=== PATIENT | female | born 1995 | race Caucasian/White ===

== ENCOUNTER 2020-09-22 17:15 | Outpatient (REF) | payer OTHER, SELFPAY | END 2020-09-22 17:16 | disposition home or self-care (01) | LOC: HO.LAB 17:15 | PROVIDERS: Visit Provider Internal Medicine | DX: Z20.828 Contact with and (suspected) exposure to other viral communicable diseases (principal) | CPT/HCPCS: C9803; U0003 ==

== ENCOUNTER 2020-11-02 17:15 | Outpatient (REF) | payer OTHER, SELFPAY | END 2020-11-02 17:16 | disposition home or self-care (01) | LOC: HO.LAB 17:15 | PROVIDERS: PCP Internal Medicine; Visit Provider Internal Medicine | DX: Z20.828 Contact with and (suspected) exposure to other viral communicable diseases (principal) | CPT/HCPCS: C9803; U0003 ==

== ENCOUNTER 2020-11-24 15:59 | Outpatient (REF) | payer OTHER, SELFPAY | END 2020-11-24 16:00 | disposition home or self-care (01) | LOC: HO.LAB 15:59 | PROVIDERS: Visit Provider Internal Medicine | DX: Z20.822 Contact with and (suspected) exposure to COVID-19 (principal) | CPT/HCPCS: 36415; C9803; U0003 ==

== ENCOUNTER 2021-05-07 22:43 | Emergency (ER) | payer OTHER, SELFPAY ==
--- NOTE | 2021-05-07 22:45 | PC.NURSE ---
awaiting for field mechanic/site lead for triage
[2021-05-07 22:57] VITALS: BP 144/76; PULSE 117; RESP 18; TEMP 36.4; O2SAT 100; BMI 23.0
--- NOTE | 2021-05-07 23:35 | ED.HA ---
HPI - Headache General Chief Complaint: Headache Stated Complaint: Headache/Dizziness Time Seen by Provider: 05/07/21 23:35 Source: patient Mode of arrival: ambulatory Limitations: language barrier History of Present Illness HPI Narrative: patient with? history of migraine headaches for last 1 year complaining of headache for last 1 week not getting better got worse for last 24 hours associated with slight nausea no light sensitivity no head injury family history of migraine present no fever no neck pain Related Data Previous Rx's Medication Instructions Recorded kujrqhbsxu-lkbuofnlmsdfm-edfp 1 cap PO Q6H PRN #20 cap 05/08/21 [Fioricet] Allergies Allergy/AdvReac Type Severity Reaction Status Date / Time No Known Allergies Allergy Unknown unknown Verified 05/07/21 22:57 [NO KNOWN ALLERGIES] Review of Systems Review of Systems: Yes all other systems are reviewed and are negative [facility] Past Medical History Medical History No pertinent past medical history Social History Social History Advance Directives: No Advance Directives Information Provided: No Patient : No Physical Exam Vital Signs: Vital Signs: Last Vital Signs Temp 97.5 F 05/07/21 22:57 Pulse 117 H 05/07/21 22:57 Resp 18 05/07/21 22:57 BP 144/76 H 05/07/21 22:57 Pulse Ox 100 05/07/21 22:57 Body Mass Index 23.0 Appearance: Alert. Oriented X3. No acute distress. Eyes: PERRLA, No Nystagmus ENT: Pharynx normal. Oral Mucosa moist no temporal artery tenderness Neck: Normal inspection. Neck supple. CVS: Normal heart rate and rhythm. Pulses normal. Respiratory: No respiratory distress. Equal air entry bilateral, no wheezing/rales/rhonchi Abdomen: Soft and nontender. Bowel sounds are present, Skin: Skin warm and dry. Normal skin color. Normal skin turgor. Extremities: No lower extremity edema. No calf tenderness Neuro: Oriented X 3. No motor deficit. No sensory deficit.No cerebellar signs , cranial nerves II-XII intact MDM - Headache MDM Narrative Medical decision making narrative: patient has chronic headache with family history of migraine likely migraine headache will discharge patient on Fioricet Discharge Plan Discharge Clinical Impression: Migraine Qualifiers: Migraine type: without aura Status migrainosus presence: without status migrainosus Intractability: not intractable Qualified Code(s): G43.009 - Migraine without aura, not intractable, without status migrainosus Patient Disposition: Home, Self-Care Instructions: Migraine Headache (ED) Additional Instructions: drink plenty of fluids take medication for headache as advised follow with PCP if not better beber mucho l?quido loi medicamentos para el dolor de eduardo seg?n lo recomendado siga con el PCP si no mejor Prescriptions: New pudvzwdifk-uajhmexztznhs-nuez [Fioricet] 50-300-40 mg capsule 1 cap PO Q6H PRN (Reason: pain) Qty: 20 RF: 0 Print Language: Persian
[2021-05-08] MEDS: Butalb/Acetamin/Caff 50/325/40 TABLET 1 TAB PO (01:38)
== END 2021-05-08 01:49 | disposition home or self-care (01) ==
PROVIDERS: Emergency Provider Internal Medicine; PCP Internal Medicine
DX: G43.009 Migraine without aura, not intractable, without status migrainosus (principal)
CPT/HCPCS: 96372; 99283; 99284; J3030

== ENCOUNTER 2023-04-01 17:19 | Emergency (ER) | payer OTHER, SELFPAY ==
[2023-04-01 17:25] VITALS: BP 133/59; PULSE 88; RESP 20; TEMP 36.9; O2SAT 100; BMI 24.0
--- NOTE | 2023-04-01 20:51 | ED.EYEPROB ---
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 Symptoms started since last night. Woke up this morning with pain in the right upper eyelid and drainage this morning patient had a sticky eyelids in the morning. No fever, no chills. No blurry vision, no photophobia. Related Data Previous Rx's Medication Instructions Recorded oajdmkkksd-tehoxlfzvfcyl-qamkitmm 1 cap PO Q6H PRN pain #20 caps 05/08/21 50 mg-300 mg-40 mg capsule (Fioricet) erythromycin 5 mg/gram (0.5 %) eye 0.5 inch ophthalmic (eye) QID #50 04/01/23 ointment grams Allergies Allergy/AdvReac Type Severity Reaction Status Date / Time No Known Allergies Allergy Unknown unknown Verified 05/07/21 22:57 [NO KNOWN ALLERGIES] Review of Systems Review of Systems: All other systems are reviewed and are negative Constitutional: Reports as per HPI and Reports no additional constitutional complaints Eyes: Reports as per HPI and Reports no additional eye complaints Reports system reviewed and no additional complaints, except as documented Cardiovascular: Reports as per HPI and Reports no additional cardiovascular complaints Respiratory: Reports as per HPI and Reports no additional respiratory complaints Gastrointestinal: Reports as per HPI and Reports no additional gastrointestinal complaints Genitourinary: Reports no additional female genitourinary complaints Musculoskeletal: Reports no additional musculoskeletal complaints Skin/Breast: Reports system reviewed and no additional complaints, except as docu Psychiatric: Reports no additional psychiatric complaints Endocrine: Reports no additional endocrine complaints Hematologic/Lymphatic: Reports no additional hematologic/lymphatic complaints Allergic/Immunologic: Reports no additional allergic/immunologic complaints Reports system reviewed and no additional complaints, except as documented and Reports Abnormal speech present [facility] Past Medical History Medical History No pertinent past medical history Social History Social History Advance Directives: No Advance Directives Information Provided: No Physical Exam Vital Signs: Vital Signs: Last Vital Signs Temp 98.4 F 04/01/23 17:25 Pulse 88 04/01/23 17:25 Resp 20 04/01/23 17:25 BP 133/59 L 04/01/23 17:25 Pulse Ox 100 04/01/23 17:25 O2 Del Method Room Air 04/01/23 17:25 BMI result Body Mass Index 24.0 Vital signs have been reviewed as appeared to be correct. Blood pressure normal. Heart rate normal. Respiration rate normal. Temperature normal. Oxygen saturation normal. Appearance: Alert. Oriented X3. No acute distress. Head: Normal external exam. Normocephalic. Atraumatic. No Sanches signs noted. No raccoon eyes noted Eyes: PERRLA. EOMI. Conjunctiva and sclera normal. Right upper eyelid tenderness, redness, swelling. ENT: TM's Normal. Pharynx normal. Uvula midline. Moist mucous membranes. No trismus noted. No drooling noted. No muffled voice noted. Neck: Normal inspection. Neck supple. FROM. No adenopathy. Thyroid Normal. No meningeal signs. No neck mass noted. CVS: Normal heart rate and rhythm. Heart sound normal. No murmurs noted. Pulses normal throughout. Respiratory: No respiratory distress. Painless inspiration. Breath sounds normal. No wheezes/rales/rhonchi noted. Chest nontender. No accessory muscle usage noted or decreased air movement noted. Abdomen: Soft and nontender. Bowel sounds normal in all 4 quadrants. No distention noted. No organomegaly noted. No visible injury noted. Back: No CVA tenderness. Full range of motion noted. Skin: Skin warm and dry. Normal skin color. Normal skin turgor. No rashes/lesions/lacerations noted. Extremities: No lower extremity edema. Extremities exhibit normal range of motion. Extremities nontender. Neuro: Oriented X 3. Cranial nerve exam: II-XII are grossly intact No motor deficit. No sensory deficit. Reflexes normal. Course Course Course Narrative: Infected Hordeolum start the patient on erythromycin ointment and warm compression and follow-up with the ophthalmology. Medical Decision Making Differential Diagnosis Differential Diagnoses: The differential diagnosis associated with the presentation includes (Infected Hordeolum, blepharitis, conjunctivitis.) Discharge Plan Discharge Clinical Impression: Hordeolum externum left eye, unspecified eyelid Patient Disposition: Home, Self-Care Instructions: Luly (ED) Prescriptions: New erythromycin 5 mg/gram (0.5 %) ointment 0.5 inch ophthalmic (eye) QID Qty: 50 0RF No Action loyhhvqwtx-jydbvgoiehrvl-vers [Fioricet] 50-300-40 mg capsule 1 cap PO Q6H PRN (Reason: pain) Qty: 20 0RF Referrals: Brielle Mitchell MD [Primary Care Provider] -
[2023-04-01] MEDS: Erythromycin Base 0.5% Oph Oin 1 GM TUBE 1 CM EYE-RIGHT (21:12)
== END 2023-04-01 21:14 | disposition home or self-care (01) ==
PROVIDERS: Emergency Provider Emergency Medicine; PCP Internal Medicine
DX: H00.011 Hordeolum externum right upper eyelid (principal); Z79.899 Other long term (current) drug therapy
CPT/HCPCS: 99283

== ENCOUNTER 2023-07-07 00:28 | Emergency (ER) | payer OTHER, SELFPAY ==
[2023-07-07 01:10] VITALS: BP 128/81; PULSE 82; RESP 18; TEMP 36.7; O2SAT 100; BMI 25.3
[2023-07-07 02:00] LABS: Appearance Urine Clear; Color Urine Yellow; Glucose Urine UA Negative (Negative); Leukocyte Esterase Urine Moderate (2+) (Negative); Nitrite Urine Negative (Negative); PH 6.5 (5.0-9.0); UMIC TRIGGER UACC YES; Urine Blood Negative (Negative); Urine Ketones Negative (Negative); Urine Protein Negative (Neg-Trace)
[2023-07-07 02:04] LABS: UPreg QC Valid YES; Urine Pregnancy NEGATIVE (NEGATIVE)
[2023-07-07 02:30] LABS: Bacteria Urine None Seen (None Seen); Hyaline Casts Urine 0-2 /LPF (0-2); RBC Urine 0-2 /HPF (0-2); Squamous Epithelial Cell Urine 0-2 /HPF (0-2); WBC Urine 0-5 /HPF (0-5)
--- NOTE | 2023-07-07 02:42 | ED_ITS ---
HPI - Female Genitourinary General Chief complaint: Urogenital-Female Stated complaint: Burning, Itching vaginal area Time Seen by Provider: 07/07/23 02:29 Source: patient Mode of arrival: ambulatory Limitations: no limitations History of Present Illness HPI Narrative: Patient comes to the emergency room complaining of erythema and itching around the vulvar area. Patient states that she has been scratching and are she has abrasions in the vulvar area. Patient has mild dysuria, no hematuria. No flank pain, no fever chills. No abdominal pain. Related Data Previous Rx's Medication Instructions Recorded mitbamdphl-waxafgtaznugt-nqyrqkwq 1 cap PO Q6H PRN pain #20 caps 05/08/21 50 mg-300 mg-40 mg capsule (Fioricet) erythromycin 5 mg/gram (0.5 %) eye 0.5 inch ophthalmic (eye) QID #50 04/01/23 ointment grams miconazole nitrate 200 mg vaginal 200 mg vaginal BEDTIME 3 days #3 ea 07/07/23 suppository nitrofurantoin 100 mg PO Q12H 7 days #14 caps 07/07/23 monohydrate/macrocrystals 100 mg capsule (Macrobid) Allergies Allergy/AdvReac Type Severity Reaction Status Date / Time No Known Allergies Allergy Unknown unknown Verified 05/07/21 22:57 [NO KNOWN ALLERGIES] Review of Systems Review of Systems: Constitutional : No Weight loss, No Fever, No Chills, No Night Sweats, No Fatigue, No Malaise ENT/Mouth : No Hearing loss, No Ear Pain, No Nasal Congestion, No Sinus Pain, No Hoarseness, No sore throat, No Rhinorrhea, No Swallowing Difficulty Eyes: No Eye Pain, No Swelling, No Redness, No Foreign Body, No Discharge, No Vision Changes Cardiovascular : No Chest Pain, No SOB, No Dyspnea on Exertion, No Orthopnea, No Edema, No Palpitations Respiratory : No Cough, No Sputum, No Wheezing, No Smoke Exposure, No Dyspnea Gastrointestinal : No Nausea, No Vomiting, No Diarrhea, No Constipation, No abdominal Pain, No Hematochezia, No Melena Genitourinary : Complaining of vulvar itching and erythema, moderate Dysuria, No Urinary Frequency, No Hematuria, No Urinary Incontinence, No Urgency, No Flank Pain, No Urinary Flow Changes, No Hesitancy Musculoskeletal : No joint pain, No Myalgias, No Joint Swelling Skin : No Skin Lesions, No rash Neuro : No Weakness, No Numbness, No Paresthesias, No Loss of Consciousness, No Dizziness, No Headache Psych : No Anxiety/Panic, No Depression, No SI/HI/AH/VH, No Social Issues, Heme/Lymph: No Bruising, No Bleeding,No Lymphadenopathy Endocrine : No Polyuria, No Polydipsia, No Temperature Intolerance [facility] Past Medical History Medical History No pertinent past medical history Social History Social History Smoked in Last 30 Days: No Use of substances other than those prescribed or required for medical reasons: No Advance Directives: No Advance Directives Information Provided: Yes Patient : No Physical Exam Vital Signs: Vital Signs: Last Vital Signs Temp 98.1 F 07/07/23 01:10 Pulse 82 07/07/23 01:10 Resp 18 07/07/23 01:10 BP 128/81 07/07/23 01:10 Pulse Ox 100 07/07/23 01:10 O2 Del Method Room Air 07/07/23 01:10 BMI result Body Mass Index 25.3 Const: Other: Appearance: Alert. Oriented X3. No acute distress. Eyes: Pupils equal, round and reactive to light. ENT: Pharynx normal. Neck: Normal inspection. Neck supple. No lymph nodes noted. No crepitus CVS: Normal heart rate and rhythm. Pulses normal. Normal S1 and S2 Respiratory: No respiratory distress. Breath sounds normal. No Wheezing. No rales Abdomen: Soft and nontender. No rigidity. No distention. : There is erythema and candidal rash in the vulvar area. No vesicles Skin: Skin warm and dry. Normal skin color. Normal skin turgor. Extremities: No lower extremity edema. No Lacerations. No Rash Neuro: Oriented X 3. No motor deficit. No sensory deficit. Moving all extremities. No slurred speech. CN 2 through 12 grossly intact Psych: calm, cooperative, normal affect Medical Decision Making Medical Decision Making MDM Narrative: -my interpretation of urinalysis, positive for UTI -I discussed the physical exam with the patient, patient will be treated for UTI and vaginal candidiasis -hCG negative Differential Diagnosis Differential Diagnoses: The differential diagnosis associated with the presentation includes (Bacterial vaginosis, vaginal candidiasis, dermatitis) Lab Data Labs: Lab Results 07/07/23 07/07/23 Range/Units 01:43 01:48 Urine Color Yellow Urine Appearance Clear Urine pH 6.5 (5.0-9.0) Ur Specific [place] 1.010 (1.005-1.025) Urine Protein Negative (Neg-Trace) mg/dL Urine Glucose (UA) Negative (Negative) mg/dL Urine Ketones Negative (Negative) mg/dL Urine Blood Negative (Negative) Urine Nitrite Negative (Negative) Ur Leukocyte Esterase Moderate (2+) H (Negative) Urine RBC 0-2 (0-2) /HPF Urine WBC 0-5 (0-5) /HPF Ur Squamous Epith Cells 0-2 (0-2) /HPF Urine Bacteria None Seen (None Seen) Hyaline Casts 0-2 (0-2) /LPF Urine Test NEGATIVE (NEGATIVE) Discharge Plan Discharge Clinical Impression: Urinary tract infection, Candidiasis of vagina Patient Disposition: Home, Self-Care Instructions: Urinary Tract Infection in Women (ED), Yeast Infection (ED) Additional Instructions: Please follow-up with your primary care physician tomorrow. If you have any worsening or new symptoms, please return to the emergency room or call 911 Prescriptions: New nitrofurantoin monohyd/m-cryst [Macrobid] 100 mg capsule 100 mg PO Q12H 7 Days Qty: 14 0RF Rx Instructions: must administer with a meal/food miconazole nitrate 200 mg suppository 200 mg vaginal BEDTIME 3 Days Qty: 3 0RF No Action ebghkdvwgr-cvpsfyaqeiucc-otgj [Fioricet] 50-300-40 mg capsule 1 cap PO Q6H PRN (Reason: pain) Qty: 20 0RF erythromycin 5 mg/gram (0.5 %) ointment 0.5 inch ophthalmic (eye) QID Qty: 50 0RF
[2023-07-07 02:53] VITALS: BP 112/72; PULSE 74; RESP 16; TEMP 36.8; O2SAT 98
== END 2023-07-07 03:00 | disposition home or self-care (01) ==
PROVIDERS: Emergency Provider Emergency Medicine; PCP Internal Medicine
DX: N39.0 Urinary tract infection, site not specified (principal); B37.31 Acute candidiasis of vulva and vagina
CPT/HCPCS: 81001; 81003; 81025; 99283; 99284

== ENCOUNTER 2023-12-11 11:33 | Outpatient (AMB) | payer OTHER, SELFPAY ==
--- NOTE | 2023-12-11 11:34 | A.OFFVIS_ITS ---
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 She had her 1st 2 babies twins 9 years ago in [place] vaginally and she had her last baby 5 years ago with the midwives here at [facility] and says she had normal births for both of them then about 4 years ago she had her tubes tied she believes with Dr. Garcia. She is mostly happy that she had it done sometime she gets twinges on both sides of her abdomen where the tiny little scars from the ports are. She gets normal regular periods and her last period came November 20 and lasted about 4 days. Sometimes she gets vaginal itching and burning like a yeast infection before her. She says she does not wear panty liners she has not seen her primary doctor who is Dr. Mejia in a while but has an appointment in February and thinks she will be getting blood work then she has not aware of any diabetes. She does sit-ups at home. [facility] Medical History No pertinent past medical history Female Reproductive History Menstrual Duration of menses: 3-5 days Date of last menstrual period: 11/20/23 control method: none Total pregnancies: 2 Full term: 3 History of abnormal pap smear: No (unknown) Physical Exam Vital Signs: Last Vital Signs BP 116/62 12/11/23 11:35 BMI result Body Mass Index 25.2 Const General: healthy appearing, comfortable, no acute distress, well developed and alert Nutritional Appearance: average body habitus Orientation/consciousness: patient oriented x3 Limitations: no limitations HEENT Head: Yes normocephalic Neck Neck: Yes normal visual inspection Chest Chest palpation & inspection: normal inspection of the chest Breast/axilla inspection: normal inspection of the breasts and normal inspection of the axillae Breast/axilla palpation: normal palpation of the breasts and normal palpation of the axillae Resp Effort & Inspection: normal respiratory effort GI Inspection: Yes normal to inspection, No Abdominal wall edema and No distended Palpation (GI): Soft to palpation and nontender Other: Patient shy about exam External vulva completely within normal limits pink normal labia . Vagina pink smooth rugated normal Cervix multiparous pink smooth completely normal mucosa no discharge Uterus midposition mobile nontender adnexa mobile nontender The tone with Kegel General: Yes bladder normal to palpation External Female Exam: normal external appearance and normal appearance of the urethra Speculum Exam - Vagina: normal appearance of the vagina, normal palpation and normal vaginal discharge Speculum Exam - Cervix: normal appearance of the cervix, normal palpation and nontender Bimanual exam- vagina & uterus: normal bimanual exam, normal palpation, uterine size normal, bladder normal to palpation, consistency normal, normal palpation, uterine mobility normal, uterine shape normal, No Cervical tenderness present, non-tender and no cervical motion tenderness Bimanual Exam- Adnexa, other: normal adnexae, no masses, normal and No adnexal tenderness Neuro General: patient oriented x3 Assessment & Plan Assessment & Plan (1) Well woman exam with routine gynecological exam: Code(s): Z01.419 - Encounter for gynecological examination (general) (routine) without abnormal findings (2) Encounter for screening examination for sexually transmitted disease: Code(s): Z11.3 - Encounter for screening for infections with a predominantly sexual mode of transmission (3) Cervical cancer screening: Comment: First Pap in 5 years 12/11/23. Code(s): Z12.4 - Encounter for screening for malignant neoplasm of cervix (4) History of tubal ligation: Comment: approx Code(s): Z98.51 - Tubal ligation status Plan -----Discussed in this visit the following: healthy balanced diet, regular and consistent exercise, getting recommended health screens, doing the best she can for her particular health concerns, kegel exercises, pap smear screening and followup recommendations, mammography screening and SBE, normal changes in cycles in her life stage--- . Pap smear done as well as testing for gonorrhea chlamydia trichomoniasis Yolie and bacterial vaginosis. Her discharge appeared scant clear and appears very healthy. And normal. She wanted to get blood work today for STI testing and I have given her information about the portal in [place]ovan. Orders: Orders Syphilis Screen Today Z11.3 - Encounter for screening for infections with a pre dominantly sexual mode of transmission Pap Smear Today Z01.419 - Encounter for gynecological examination (general) (routine) without abnormal findings Hepatitis B Surface Antigen Today Z11.3 - Encounter for screening for infections with a predominantly sexual mode of transmission Hepatitis C Antibody Today Z11.3 - Encounter for screening for infections with a predominantly sexual mode of transmission HIV Ab/Ag Today Z11.3 - Encounter for screening for infections with a predominantly sexual mode of transmission CT NG by PCR Today Z01.419 - Encounter for gynecological examination (general) (routine) without abnormal findings Bacterial Vaginosis Panel Today Z20.2 - Contact with and (suspected) exposure to infections with a predominantly sexual mode of transmission Coding Level of Care Code New Pt Prev Care [id number] Diagnoses Well woman exam with routine gynecological exam Z01.419 Encounter for screening examination for sexually transmitted disease Z11.3 Cervical cancer screening Z12.4 History of tubal ligation Z98.51
[2023-12-11 11:35] VITALS: BP 116/62; BMI 25.2
== END 2023-12-11 13:14 | disposition home or self-care (01) ==
LOC: HO.HWSM 11:33
PROVIDERS: PCP Internal Medicine; Visit Provider Advanced Practice Midwife
DX: Z01.419 Encounter for gynecological examination (general) (routine) without abnormal findings (principal); Z11.3 Encounter for screening for infections with a predominantly sexual mode of transmission; Z12.4 Encounter for screening for malignant neoplasm of cervix; Z98.51 Tubal ligation status
CPT/HCPCS: 99385

== ENCOUNTER 2023-12-11 11:33 | Outpatient (REF) | payer OTHER, SELFPAY ==
[2023-12-11 18:29] LABS: CT PCR NOT DETECTED (Not Detect.); NG PCR NOT DETECTED (Not Detect.)
[2023-12-12 13:41] LABS: BV Int Neg Control Negative (Negative); BV Int Pos Control Positive (Positive)
== END 2023-12-11 11:34 | disposition home or self-care (01) ==
LOC: HO.LAB 11:33
PROVIDERS: PCP Internal Medicine; Visit Provider Advanced Practice Midwife
DX: Z01.419 Encounter for gynecological examination (general) (routine) without abnormal findings (principal); Z20.2 Contact with and (suspected) exposure to infections with a predominantly sexual mode of transmission; Z98.51 Tubal ligation status
CPT/HCPCS: 0353U; 87480; 87510; 87660; 88142; 99385

== ENCOUNTER 2023-12-11 12:19 | Outpatient (REF) | payer OTHER, SELFPAY ==
[2023-12-12 05:05] LABS: Syphilis Screen Nonreactive (Nonreactive)
[2023-12-12 07:33] LABS: HBsAGNum1 0.41 S/CO (0.00-0.99); HIV Num 1 3.25 S/CO (0.00-0.99); Hepatitis B Surface Antigen Negative (Negative); ~HepC Num1 0.14 S/CO (0.00-0.79); ~Hepatitis C Antibody Nonreactive (Nonreactive)
[2023-12-12 09:40] LABS: HIV AB/AG Nonreactive (Nonreactive); HIV Num 2 0.06 S/CO; HIV Num 3 0.06 S/CO
== END 2023-12-11 12:20 | disposition home or self-care (01) ==
LOC: HO.HHCL 12:19
PROVIDERS: Visit Provider Advanced Practice Midwife
DX: Z11.3 Encounter for screening for infections with a predominantly sexual mode of transmission (principal)
CPT/HCPCS: 36415; 86780; 86803; 87340; 87389

== ENCOUNTER 2024-02-07 09:14 | Outpatient (AMB) | payer OTHER, SELFPAY ==
[2024-02-07 09:16] VITALS: BP 120/70; BMI 25.2
--- NOTE | 2024-02-07 09:16 | A.OFFPC_ITS ---
Vital Signs 02/07/24 09:16 Height 5 ft 4 in Weight 147 lb BMI 25.2 BP 120/70 Blood Pressure Location Lt brachial Position Sitting Intake Visit Reasons: Re-establish Care/ Request PE Intake Note: Patient here to re-establish care/ Physical exam Infection Prevention Coordinator Required: No Accompanied by: Self / Same As Patient Allergies No Known Allergies [NO KNOWN ALLERGIES] Allergy (Unknown, Verified 02/07/24 09:36) unknown Medication List - Last Reconciled 02/07/24 by Brielle Tony MD fluoxetine 40 mg PO DAILY lorazepam 1 mg PO TID propranolol 10 mg PO TID trazodone 50 mg PO BEDTIME Tobacco use date assessed: 02/07/24 Dental Screening Dental Screen Date: 02/07/24 Did you have a dental visit in the last 12 months?: No Did you have a dental problem in the last 6 months where you did not have access to dental care?: No Was dental information given to patient?: Patient has dentist HPI HPI Comments History of Present Illness Details This is a 28-year-old female with mild major depression that comes for her physical exam. Depression stable with fluoxetine and this is follow by Psychiatry. Last Pap smear was December 2023 and was normal with HPV negative. Complains of occasional chest pain and an EKG will be ordered. The chest pain happens at rest and is tender to palpation and started few months ago. She also has migraines that last for few days when it happens and will be referred to Neurology. [facility] Medical History (Updated 02/07/24 @ 09:47 by Brielle Tony MD) No pertinent past medical history Surgical History History of tubal ligation Family History Mother Hypertension Father No problems noted. Social History Housing: Apartment Alcohol intake: never Patient Tobacco Use Status: Never used Tobacco e-Cigarette/Vaping Use: Never Used Second Hand Smoke Exposure: No service: No Current occupational status: unemployed Cognitive needs: No Hearing needs: No Vision needs: No Questionnaire PHQ-9 Over the last 2 weeks, how often have you been bothered by any of the following problems? 1. Little interest or pleasure in doing things: several days 2. Feeling down, depressed, or hopeless: several days 3. Trouble falling or staying asleep, or sleeping too much: several days 4. Feeling tired or having little energy: several days 5. Poor appetite or overeating: not at all 6. Feeling bad about yourself - or that you are a failure or have let yourself or your family down: several days 7. Trouble concentrating on things, such as reading the newspaper or watching television: not at all 8. Moving or speaking so slowly that other people could have noticed. Or the opposite - being so fidgety or restless that you have been moving around a lot more than usual: not at all 9. Thoughts that you would be better off or of hurting yourself in some way: not at all Total score: 5 Depression Screening Interpretation: Positive Depression Screening Follow-up: Existing condition and In treatment Depression Screening Done: Yes 93915 - PHQ-9 Billing: Yes Source: Developed by Drs. Naseem Hartman, Jeanie Osuna, Altaf Hernandez and colleagues, with an educational anya from [employer]. Thrive Questionnaire Date Thrive assessed: 02/07/24 I am a: Patient What is your living situation today?: I have a steady place to live Within the past 12 months, did the food you bought not last and you didn't have the money to get more?: Never true Within the past 12 months, did you worry whether your food would run out before you got money to buy more?: Never true Do you have trouble paying for medicines?: No Do you have trouble getting transportation to medical appointments?: No Do you have trouble paying your heating and electricity bill?: No Do you have trouble taking care of your child, family member or friend?: No Do you have trouble with day-to-day activities such as bathing, preparing meals, shopping, managing finances, etc.?: No Are you currently unemployed and looking for a job?: No Are you interested in more education?: No Please select the resources that you would like help with: None Currently or been in a relationship where the following occur: no concerns reported THRIVE Score: 0 AUDIT C Alcohol Use Questionnaire (AUDIT-C) 1. How often do you have a drink containing alcohol?: Never Total Score: 0 YARA-7 AMB Questionnaire YARA-7 Date YARA - 7 assessed: 02/07/24 Feeling nervous, anxious, or on edge: 1 = Several days Not being able to stop or control worryin = Not at all Worrying too much about different things: 1 = Several days Trouble relaxin = Several days Being so restless that it is hard to sit still: 0 = Not at all Becoming easily annoyed or irritable: 1 = Several days Feeling afraid as if something awful might happen: 0 = Not at all Total YARA-7 score (0-4 normal; 5-9 mild; 10-14 moderate; 15-21 severe): 4 Source: Developed by Drs. Naseem Hartman, Jeanie Osuna, Altaf Hernandez and colleagues, with an educational anya from [employer]. YARA-7 Assessment Billing YARA-7 Assessment Tool: YARA-7 Assessment 51943 Review of Systems Const All systems reviewed & are unremarkable except as noted in HPI and below Reports headache(s) Eyes Reports no additional complaints, Denies change in vision and Denies other visual disturbances ENT Reports headache(s) Card Denies chest pain at rest, Denies chest pain with activity, Denies edema, Denies irregular heart rhythm, Denies claudication, Denies dyspnea, Denies dyspnea on exertion, Denies orthopnea, Denies paroxysmal nocturnal dyspnea and Denies slow heart rate Resp Denies cough, Denies dyspnea and Denies dyspnea on exertion Neuro Reports headache(s) Psych Reports abnormal sleep pattern, Reports anxiety, Reports depression and Reports panic attacks Physical exam (Primary Care) Vital Signs: Last Vital Signs BP 120/70 02/07/24 09:16 BMI result Body Mass Index 25.2 Tobacco/Smoking Status: Tobacco use Status Tobacco use date assessed 02/07/24 02/07/24 09:24 Patient Tobacco Use Status Never used Tobacco 02/07/24 09:24 e-Cigarette/Vaping Use Never Used 02/07/24 09:24 PHQ-9: PHQ-9 Score PHQ-9: Total score 5 02/07/24 09:47 Depression Screening Interpretation: Positive Depression Screening Follow-up: Existing condition and In treatment Thrive Assessment: Date of Thrive Assessment Date Thrive assessed 02/07/24 02/07/24 09:24 Currently or been in a relationship where the following occur: no concerns reported Const Orientation/consciousness: patient oriented x3 HENMT Head: Yes normal to inspection, Yes normocephalic and Yes atraumatic Ears: external ears normal Eyes General: appearance normal, both eyes and all related structures Eyelids: Yes eyelids normal Conjunctivae: conjunctivae normal Neck Neck: Yes normal visual inspection and Yes supple Resp Effort & Inspection: normal respiratory effort Auscultation: clear to auscultation bilaterally Cardio Jugular venous distension: no JVD Rate: regular rate Rhythm: regular rhythm Heart sounds: S1 normal heart sound present and S2 normal heart sound present GI Inspection: Yes normal to inspection Palpation (GI): Soft to palpation and nontender Auscultation: normal bowel sounds Skin General skin exam: no rashes or lesions noted Neuro General: patient oriented x3 and no focal motor deficits Extrem General: Yes full ROM Psych Appearance: grossly normal Assessment and Plan Assessment & Plan (1) Physical exam: Code(s): Z00.00 - Encounter for general adult medical examination without abnormal findings Plan: Repeat in a year. (2) Mild major depression: Code(s): F32.0 - Major depressive disorder, single episode, mild Plan: Continue fluoxetine. Follow-up with psychiatry. Orders: Orders ECG 12 lead EKG Today R07.9 - Chest pain, unspecified Lipid Panel Today Z00.00 - Encounter for general adult medical examination without abnormal findings Comprehensive [place]. Panel Fast Today Z00.00 - Encounter for general adult medical examination without abnormal findings Complete Blood Count Auto Diff Today G43.909 - Migraine, unspecified, not intractable, without status migrainosus T Spot TB Today Z11.1 - Encounter for screening for respiratory tuberculosis Referrals Neurology Referral G43.909 - Migraine, unspecified, not intractable, without status migrainosus Dermatology Referral L70.9 - Acne, unspecified Medications: New sumatriptan succinate do not exceed 8 doses per 24 hrs 25 mg PO Q2-4H 30 days PRN 9 tabs 0RF migraine headache G43.909 - Migraine, unspecified, not intractable, without status migrainosus Coding Level of Care Code New Pt Prev Care 18-39yr(12208 Diagnoses Physical exam Z00.00 Mild major depression F32.0 Additional Codes YARA-7 Assessment Billing - YARA-7 Assessment Tool: YARA-7 Assessment 71907 ([id number]) Time Spent (min) 35
== END 2024-02-07 09:52 | disposition home or self-care (01) ==
PROVIDERS: PCP Internal Medicine; Visit Provider Internal Medicine
DX: Z00.00 Encounter for general adult medical examination without abnormal findings (principal); F33.0 Major depressive disorder, recurrent, mild
CPT/HCPCS: 99385

== ENCOUNTER 2024-02-21 00:49 | Emergency (ER) | payer OTHER, SELFPAY ==
[2024-02-21 00:51] VITALS: BP 138/87; PULSE 99; RESP 18; TEMP 37; O2SAT 100; BMI 23.5
--- NOTE | 2024-02-21 01:40 | MHC.EDTECH ---
PATIENT RSV/COVID AND STREAP SWAB COLLECTED AND SENT TO LAB .
[2024-02-21 02:03] LABS: IDNOW Serial# 08D9AD1C; Strep A Nucleic Acid Positive (Negative)
[2024-02-21 02:22] LABS: Influenza A PCR NEGATIVE (Negative); Influenza B PCR NEGATIVE (Negative); Resp Syncy Virus RNA Qual PCR NEGATIVE (Negative); SARS COV2 PCR INHOUSE NEGATIVE (Negative)
--- NOTE | 2024-02-21 05:28 | ED.GENADULT ---
HPI - General Adult General Chief complaint: General Medical Stated complaint: throat and neck pain Time Seen by Provider: 02/21/24 05:27 Source: patient and lang interpreter Mode of arrival: ambulatory Limitations: no limitations History of Present Illness HPI narrative: 28-year-old female came in for evaluation of sore throat. Symptoms started 2 days ago, no fever, no chills, no sick contacts, no recent travel, no difficulty breathing, no difficulty swallowing, no change in voice. Related Data Home Medications ?Medication ?Instructions ?Recorded ?Confirmed fluoxetine 40 mg capsule 40 mg PO DAILY 02/07/24 02/07/24 lorazepam 1 mg tablet 1 mg PO TID 02/07/24 02/07/24 propranolol 10 mg tablet 10 mg PO TID 02/07/24 02/07/24 trazodone 50 mg tablet 50 mg PO BEDTIME 02/07/24 02/07/24 Previous Rx's ?Medication ?Instructions ?Recorded sumatriptan succinate 25 mg tablet 25 mg PO Q2-4H PRN migraine 02/07/24 headache 30 days #9 tabs amoxicillin 875 mg-potassium 1 tab PO BID #14 tabs 02/21/24 clavulanate 125 mg tablet Allergies Allergy/AdvReac Type Severity Reaction Status Date / Time No Known Allergies Allergy Unknown unknown Verified 02/21/24 00:53 [NO KNOWN ALLERGIES] Review of Systems Review of Systems: All other systems are reviewed and are negative Constitutional: Reports as per HPI and Reports no additional constitutional complaints Eyes: Reports as per HPI and Reports no additional eye complaints Reports system reviewed and no additional complaints, except as documented Cardiovascular: Reports as per HPI and Reports no additional cardiovascular complaints Respiratory: Reports as per HPI and Reports no additional respiratory complaints Gastrointestinal: Reports as per HPI and Reports no additional gastrointestinal complaints Genitourinary: Reports no additional female genitourinary complaints Musculoskeletal: Reports no additional musculoskeletal complaints Skin/Breast: Reports system reviewed and no additional complaints, except as docu Psychiatric: Reports no additional psychiatric complaints Endocrine: Reports no additional endocrine complaints Hematologic/Lymphatic: Reports no additional hematologic/lymphatic complaints Allergic/Immunologic: Reports no additional allergic/immunologic complaints Reports system reviewed and no additional complaints, except as documented and Reports Abnormal speech present PMFSH Past Medical History Medical History No pertinent past medical history Surgical History History of tubal ligation Family History Family History Mother Hypertension Father No problems noted. Social History Social History Housing: Apartment Alcohol intake: never Patient Tobacco Use Status: Never used Tobacco e-Cigarette/Vaping Use: Never Used Second Hand Smoke Exposure: No service: No Current occupational status: unemployed Cognitive needs: No Hearing needs: No Vision needs: No Physical Exam ED Vital Signs: Vital Signs - 24 hr 02/21/24 00:51 Temperature 98.6 F Pulse Rate 99 Respiratory Rate 18 Blood Pressure 138/87 Pulse Oximetry 100 Oxygen Delivery Method Room Air BMI result Body Mass Index 23.5 Vital signs have been reviewed and appear to be correct. Blood pressure elevated. Heart rate normal. Respiratory rate normal. Temperature normal. Oxygen saturation normal. Appearance: Alert. Oriented X3. No acute distress. Head: Normal external exam. Normocephalic. Atraumatic. No Sanches signs noted. No raccoon eyes noted Eyes: PERRLA. EOMI. Conjunctiva and sclera normal. Eyelids normal. ENT: TM's Normal. Uvula midline. Moist mucous membranes. No trismus noted. No drooling noted. No muffled voice noted. Pharyngeal erythema with no exudate. Neck: Normal inspection. Neck supple. FROM. No adenopathy. Thyroid Normal. No meningeal signs. No neck mass noted. CVS: Normal heart rate and rhythm. Heart sound normal. No murmurs noted. Pulses normal throughout. Respiratory: No respiratory distress. Painless inspiration. Breath sounds normal. No wheezes/rales/rhonchi noted. Chest nontender. No accessory muscle usage noted or decreased air movement noted. Abdomen: Soft and nontender. Bowel sounds normal in all 4 quadrants. No distention noted. No organomegaly noted. No visible injury noted. Back: No CVA tenderness. Full range of motion noted. Skin: Skin warm and dry. Normal skin color. Normal skin turgor. No rashes/lesions/lacerations noted. Extremities: No lower extremity edema. Extremities exhibit normal range of motion. Extremities nontender. Neuro: Oriented X 3. Cranial nerve exam: II-XII are grossly intact No motor deficit. No sensory deficit. Reflexes normal. Course Reevaluation(s) Reevaluation #1: Strep pharyngitis will start the patient on Augmentin. Time: 05:29 Medical Decision Making Differential Diagnosis Differential Diagnoses: The differential diagnosis associated with the presentation includes (Influenza, RSV, COVID-19 infection, strep pharyngitis.) Admission/Observation Consideration of admission/observation: Escalation of care including admission/observation considered Lab Data MDM Lab Attestation statement: I reviewed the patient's lab results. Labs: Lab Results 02/21/24 Range/Units 01:38 Influenza Type A (PCR) NEGATIVE (Negative) Influenza Type B (PCR) NEGATIVE (Negative) RSV RNA Qual (PCR) NEGATIVE (Negative) SARS-CoV-2 RNA (RT-PCR) NEGATIVE (Negative) S. pyogenes GrpA MARTHA Positive A (Negative) Discharge Plan Discharge Clinical Impression: Acute streptococcal pharyngitis Patient Disposition: Home, Self-Care Instructions: Strep Throat (ED) Prescriptions: New amoxicillin-pot clavulanate 875-125 mg tablet 1 tab PO BID Qty: 14 0RF No Action fluoxetine 40 mg capsule 40 mg PO DAILY trazodone 50 mg tablet 50 mg PO BEDTIME lorazepam 1 mg tablet 1 mg PO TID propranolol 10 mg tablet 10 mg PO TID sumatriptan succinate 25 mg tablet 25 mg PO Q2-4H PRN (Reason: migraine headache) 30 Days Qty: 9 0RF Rx Instructions: do not exceed 8 doses per 24 hrs Referrals: Brielle Mitchell MD [Primary Care Provider] - Print Language: Hungarian
[2024-02-21] MEDS: Amoxicillin/Potassium Clav 875 MG TABLET PO (05:53)
[2024-02-21 05:55] VITALS: BP 124/78; PULSE 90; RESP 16; TEMP 36.9; O2SAT 98
[2024-02-21 06:05] VITALS: BP 124/78; PULSE 90; RESP 16; TEMP 36.9; O2SAT 100
== END 2024-02-21 06:09 | disposition home or self-care (01) ==
LOC: HO.ED 06:06
PROVIDERS: Emergency Provider Emergency Medicine; PCP Internal Medicine
DX: J02.0 Streptococcal pharyngitis (principal)
CPT/HCPCS: 0241U; 87651; 99283

== ENCOUNTER 2024-03-11 11:04 | Outpatient (REF) | payer OTHER, SELFPAY ==
[2024-03-11 11:19] LABS: MANUAL DIFF FLAG NO
--- NOTE | 2024-03-11 11:47 | ECG_ITS ---
Test Reason : R07.9 Blood Pressure : / mmHG Vent. Rate : 073 BPM Atrial Rate : 073 BPM P-R Int : 180 ms QRS Dur : 082 ms QT Int : 396 ms P-R-T Axes : 078 094 063 degrees QTc Int : 436 ms Normal sinus rhythm with sinus arrhythmia Rightward axis Borderline ECG No previous ECGs available Referred By: Brielle Tony Electronically Signed By:Trace Guadalupe
[2024-03-11 12:20] LABS: Basophils Percent Auto 0.8 % (0-2); Eosinophils Absolute Auto 0.1 X10*3/uL (0.0-0.4); Eosinophils Percent Auto 1.5 % (0-4); Hematocrit 39.7 % (37.0-47.0); Hemoglobin 13.1 g/dl (12.0-16.0); Imm Gran Abs Auto 0.01 X10*3/uL (0.00-0.03); Imm Gran Pct Auto 0.2 % (0.0-0.4); Lymphocytes Absolute Auto 1.6 X10*3/uL (1.2-4.9); Lymphocytes Percent Auto 31.4 % (20-40); Mean Corpuscular Hemoglobin 28.5 pg (27.0-33.0); Mean Corpuscular Volume 86.3 fL (80.0-98.0); Mean Platelet Volume 11.6 fL (9.4-12.3); Monocytes Absolute Auto 0.6 X10*3/uL (0.1-1.2); Monocytes Percent Auto 10.5 % (2-11); Neutrophils Absolute Auto 2.9 x10*3/uL (2.0-8.3); Neutrophils Percent Auto 55.6 % (45-73); Platelet Count 227 X10*3/uL (160-400); Red Cell Distribution Width 13.2 % (11.0-16.0); White Blood Count 5.2 X10*3/uL (4.8-10.8)
[2024-03-11 12:48] LABS: Alanine Aminotransferase 11 U/L (0-31); Albumin Level 4.2 g/dL (3.5-5.0); Alkaline Phosphatase 81 U/L (39-117); Anion Gap 11 (12-20); Aspartate Amino Transferase 17 U/L (5-31); Bilirubin Total 0.7 mg/dL (0.0-1.0); Blood Urea Nitrogen 11 mg/dL (9-16); Calcium 9.7 mg/dL (8.4-10.2); Carbon Dioxide 26 mmol/L (22-29); Chloride 107 mmol/L (96-108); Cholesterol 161 mg/dL (<200); Estimated Glomerular Filt Rate > 60; Glucose Fasting 91 mg/dL (60-99); HDL Cholesterol 52 mg/dL (>40); LDL Cholesterol Calculated 98 mg/dL (<100); Potassium 3.6 mmol/L (3.3-5.1); Sodium 140 mmol/L (135-145); Total Protein 7.8 g/dL (6.5-8.0); Triglycerides 55 mg/dL (<150)
[2024-03-14 11:09] LABS: TS Negative Control Passed; TS Panel A 0; TS Panel B 0; TS Positive Control Passed; TSpotTB Negative (Negative)
== END 2024-03-11 11:05 | disposition home or self-care (01) ==
LOC: HO.LAB 11:04
PROVIDERS: PCP Internal Medicine; Visit Provider Internal Medicine
DX: Z00.00 Encounter for general adult medical examination without abnormal findings (principal); Z11.1 Encounter for screening for respiratory tuberculosis; R07.9 Chest pain, unspecified; G43.909 Migraine, unspecified, not intractable, without status migrainosus
CPT/HCPCS: 36415; 80053; 80061; 85025; 86481; 93005

== ENCOUNTER → 2024-03-11 11:47 | Outpatient (BNV) | payer OTHER, SELFPAY | PROVIDERS: PCP Internal Medicine; Visit Provider Internal Medicine Cardiovascular Disease | DX: I49.9 Cardiac arrhythmia, unspecified (principal) | CPT/HCPCS: 93010 ==

== ENCOUNTER 2024-07-17 09:26 | Emergency (ER) | payer OTHER, SELFPAY ==
--- NOTE | ~2024-07-17 | XR_ITS ---
EXAMINATION: XR CHEST CLINICAL INFORMATION: Chest pain COMPARISON: None available. TECHNIQUE: Frontal view of the chest was obtained. FINDINGS: No focal consolidation. No pneumothorax. Trachea is midline. Cardiac mediastinal silhouette is not enlarged. No large pleural effusion. Osseous structures are intact. Soft tissues are unremarkable XR/XR chest 1V IMPRESSION: No acute cardiopulmonary process. Electronically signed by: Dinah Carr MD 07/17/2024 11:10 AM EDT
--- NOTE | 2024-07-17 09:29 | ECG_ITS ---
Test Reason : chest pain Blood Pressure : / mmHG Vent. Rate : 086 BPM Atrial Rate : 086 BPM P-R Int : 148 ms QRS Dur : 078 ms QT Int : 376 ms P-R-T Axes : 070 095 063 degrees QTc Int : 449 ms Normal sinus rhythm Rightward axis Borderline ECG When compared with ECG of 11-MAR-2024 11:48, No significant change was found Referred By: Generic ED Physician Electronically Signed By:LASHAWN MUNOZ
[2024-07-17 09:35] VITALS: BP 133/81; PULSE 81; RESP 18; TEMP 36.6; O2SAT 100; BMI 25.2
[2024-07-17 09:38] LABS: MANUAL DIFF FLAG NO
[2024-07-17 09:40] LABS: Basophils Absolute Auto 0.1 X10*3/uL (0.0-0.2); Basophils Percent Auto 0.8 % (0-2); Eosinophils Absolute Auto 0.1 X10*3/uL (0.0-0.4); Eosinophils Percent Auto 1.7 % (0-4); Hematocrit 40.5 % (37.0-47.0); Hemoglobin 13.6 g/dl (12.0-16.0); Imm Gran Abs Auto 0.02 X10*3/uL (0.00-0.03); Imm Gran Pct Auto 0.3 % (0.0-0.4); Lymphocytes Absolute Auto 1.6 X10*3/uL (1.2-4.9); Mean Corpuscular HGB Conc 33.6 g/dl (31.0-35.0); Mean Corpuscular Hemoglobin 28.3 pg (27.0-33.0); Mean Corpuscular Volume 84.4 fL (80.0-98.0); Mean Platelet Volume 10.6 fL (9.4-12.3); Monocytes Absolute Auto 0.6 X10*3/uL (0.1-1.2); Monocytes Percent Auto 8.4 % (2-11); Neutrophils Absolute Auto 4.7 x10*3/uL (2.0-8.3); Neutrophils Percent Auto 66.8 % (45-73); Platelet Count 281 X10*3/uL (160-400); Red Cell Distribution Width 12.6 % (11.0-16.0); White Blood Count 7.1 X10*3/uL (4.8-10.8)
[2024-07-17 09:59] LABS: Alanine Aminotransferase 7 U/L (0-31); Albumin Level 4.3 g/dL (3.5-5.0); Alkaline Phosphatase 84 U/L (39-117); Anion Gap 13 (12-20); Aspartate Amino Transferase 15 U/L (5-31); Bilirubin Direct 0.1 mg/dL (0.0-0.5); Bilirubin Total 0.3 mg/dL (0.0-1.0); Blood Urea Nitrogen 7 mg/dL (9-16); Calcium 9.3 mg/dL (8.4-10.2); Carbon Dioxide 25 mmol/L (22-29); Chloride 105 mmol/L (96-108); Creatinine Clr Calc Pharmacy 90.8; Estimated Glomerular Filt Rate > 60; Glucose Random 115 mg/dL (60-115); Lipase 15 U/L (8-78); Potassium 4.2 mmol/L (3.3-5.1); Sodium 139 mmol/L (135-145); Total Protein 7.9 g/dL (6.5-8.0)
[2024-07-17 10:04] LABS: Appearance Urine Clear; Color Urine Yellow; Glucose Urine UA Negative (Negative); Leukocyte Esterase Urine Negative (Negative); Nitrite Urine Negative (Negative); Urine Blood Negative (Negative); Urine Ketones Negative (Negative); Urine Protein Negative (Neg-Trace)
[2024-07-17 10:05] LABS: UPreg QC Valid YES; Urine Pregnancy NEGATIVE (NEGATIVE)
[2024-07-17 10:14] LABS: Troponin-I High Sensitivity < 2.7 ng/L (<3.5-17.0)
--- NOTE | 2024-07-17 12:20 | ED.CHESTPAIN ---
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 Reports she has also had nausea, vomiting and diarrhea since yesterday. Denies fevers. Denies any hematemesis, hematochezia, melena. Denies dizziness, lightheadedness, syncope. Pain location: epigastric Pain radiation: back Quality: burning Associated symptoms: nausea, vomiting and other Treatment prior to arrival: none Related Data Home Medications ?Medication ?Instructions ?Recorded ?Confirmed fluoxetine 40 mg capsule 40 mg PO DAILY 02/07/24 02/07/24 lorazepam 1 mg tablet 1 mg PO TID 02/07/24 02/07/24 propranolol 10 mg tablet 10 mg PO TID 02/07/24 02/07/24 trazodone 50 mg tablet 50 mg PO BEDTIME 02/07/24 02/07/24 Previous Rx's ?Medication ?Instructions ?Recorded sumatriptan succinate 25 mg tablet 25 mg PO Q2-4H PRN migraine 02/07/24 headache 30 days #9 tabs amoxicillin 875 mg-potassium 1 tab PO BID #14 tabs 02/21/24 clavulanate 125 mg tablet ondansetron 4 mg disintegrating 4 mg PO Q8H PRN nausea and 07/17/24 tablet vomiting #10 tabs Allergies Allergy/AdvReac Type Severity Reaction Status Date / Time No Known Allergies Allergy Unknown unknown Verified 07/17/24 09:37 [NO KNOWN ALLERGIES] Review of Systems Review of Systems: As per HPI. Yes all other systems are reviewed and are negative Constitutional: Constitutional: Reports as per HPI [facility] Past Medical History Medical History No pertinent past medical history Surgical History History of tubal ligation Family History Family History Mother Hypertension Father No problems noted. Social History Social History Housing: Apartment Alcohol intake: never Patient Tobacco Use Status: Never used Tobacco e-Cigarette/Vaping Use: Never Used Second Hand Smoke Exposure: No Advance Directives: No Do you have a plan to hurt others: No Plan Patient : No service: No Current occupational status: unemployed Cognitive needs: No Hearing needs: No Vision needs: No Physical Exam Vital Signs: Vital Signs: Last Vital Signs Temp 97.8 F 07/17/24 17:06 Pulse 68 07/17/24 17:06 Resp 20 07/17/24 17:06 BP 115/78 07/17/24 17:06 Pulse Ox 98 07/17/24 17:06 O2 Del Method Room Air 07/17/24 17:06 BMI result Body Mass Index 25.2 Vital signs have been reviewed and appear to be correct. Blood pressure normal. Heart rate normal. Respiratory rate normal. Temperature normal. Oxygen saturation normal. Const: General: cooperative, healthy appearing and no acute distress Orientation/consciousness: oriented to person, oriented to place, oriented to time and patient oriented x3 Limitations: no limitations HEENT: Head: Yes normocephalic and Yes atraumatic Ears: external ears normal General nose exam: Normal external nose present Face and sinus: Yes face symmetric Mouth: oropharynx normal and moist mucous membranes Throat: Yes uvula midline Eyes: Pupils: Equal, round and reactive pupils present Neck: Neck: Yes normal visual inspection and Yes supple Resp: Effort & Inspection: normal respiratory effort and able to speak in complete sentences Auscultation: clear to auscultation bilaterally Cardio: Rate: regular rate Rhythm: regular rhythm Heart sounds: S1 normal heart sound present and S2 normal heart sound present GI: Palpation (GI): Soft to palpation, Tenderness to palpation present (GI) in the epigastrum (mild), no guarding and No Rebound tenderness present Auscultation: normoactive bowel sounds : General: Yes no CVA tenderness Back/Spine/Pelvis: Back: no CVA tenderness Skin: General skin exam: elasticity normal and turgor normal Neuro: General: oriented to person, oriented to place, oriented to time, patient oriented x3, moves all extremities, no focal motor deficits and CN's II-XI intact bilaterally Cranial nerves: Yes Equal, round and reactive pupils present Cognition (Neuro): normal cognition Extrem: General: Yes full ROM, Yes no pedal edema and Yes no calf tenderness Psych: Mental Status: mental status grossly normal Affect: normal affect Thought process: Normal thought process present Medications Administered Discontinued Medications Generic Name Dose Route Start Last Admin Trade Name Yogiq PRN Reason Stop Dose Admin Al Hydroxide/Mg Hydroxide 15 ml 07/17/24 14:23 07/17/24 15:48 Magnesium Hydrox/Alum Hydrox 30 Ml Oral.Susp PO 07/17/24 14:24 15 ml ONCE ONE Administration Sodium Chloride 1,000 mls @ 999 mls/hr 07/17/24 14:15 07/17/24 15:50 Ns IV 07/17/24 15:15 Infused .Q1H1M GALI Infusion Ketorolac Tromethamine 15 mg 07/17/24 14:04 07/17/24 14:22 Ketorolac Tromethamine 15 Mg/Ml Vial IVPUSH 07/17/24 14:05 15 mg ONCE ONE Administration Lidocaine HCl 5 ml 07/17/24 14:23 07/17/24 15:45 Lidocaine Hcl Viscous 2 % 15 Ml Solution MUCOUS MEM 07/17/24 14:24 5 ml ONCE ONE Administration Ondansetron HCl 4 mg 07/17/24 14:04 07/17/24 14:22 Ondansetron Hcl 4 Mg/2 Ml Vial IVPUSH 07/17/24 14:05 4 mg ONCE ONE Administration Medical Decision Making Medical Decision Making [facility] Narrative: Patient is a 29-year-old female with history of migraines, anxiety and depression presenting to the emergency department with complaint of epigastric pain which radiates to chest as well as low back pain. Reports she has also had nausea, vomiting and diarrhea since yesterday. On exam patient is awake, A+Ox3, VS WNL, afebrile, normal neurological exam without focal deficits, physical exam findings as above. Given reported symptoms and physical exam findings, initial differential includes gastroenteritis, gastritis, GERD, PUD, viral illness, flu, Covid. Unlikely ACS. Do not suspect PE, PERC negative. Labs unremarkable, troponin negative x 2. Urinalysis is without evidence of infection. Viral serology negative. EKG shows normal sinus rhythm. X-ray chest notable for no evidence of pneumothorax, pneumonia, cardiomegaly. My interpretation is in agreement with the radiologist's interpretation. Plan to give IV fluids, toradol, zofran and GI cocktail and reassess. Patient reports significant improvement in symptoms after medications administered in the ED. Feels she is stable for discharge home. Will send prescription for zofran. Follow up with PCP. Return precautions discussed. Patient verbalized understanding of and agreement with plan. Differential Diagnosis Differential Diagnoses: The differential diagnosis associated with the presentation includes As per [facility]. Admission/Observation Consideration of admission/observation: Escalation of care including admission/observation considered Patient would have been admitted to the hospital had their work up had any findings where hospital admission was appropriate and their clinical presentation warranted hospital admission. Lab Data [facility] Lab Attestation statement: I reviewed the patient's lab results. As per [facility] 07/17/24 09:34 07/17/24 09:34 Labs: Lab Results 07/17/24 07/17/24 07/17/24 Range/Units 09: 09:56 12:23 WBC 7.1 (4.8-10.8) X10*3/uL RBC 4.80 (4.20-5.50) X10*6/uL Hgb 13.6 (12.0-16.0) g/dl Hct 40.5 (37.0-47.0) % MCV 84.4 (80.0-98.0) fL MCH 28.3 (27.0-33.0) pg MCHC 33.6 (31.0-35.0) g/dl RDW 12.6 (11.0-16.0) % Plt Count 281 (160-400) X10*3/uL MPV 10.6 (9.4-12.3) fL Immature Gran % (Auto) 0.3 (0.0-0.4) % Neut % (Auto) 66.8 (45-73) % Lymph % (Auto) 22.0 (20-40) % [place] % (Auto) 8.4 (2-11) % Eos % (Auto) 1.7 (0-4) % Baso % (Auto) 0.8 (0-2) % Lymph # (Auto) 1.6 (1.2-4.9) X10*3/uL [place] # (Auto) 0.6 (0.1-1.2) X10*3/uL Eos # (Auto) 0.1 (0.0-0.4) X10*3/uL Baso # (Auto) 0.1 (0.0-0.2) X10*3/uL Abs Immat Gran (auto) 0.02 (0.00-0.03) X10*3/uL Absolute Neuts (auto) 4.7 (2.0-8.3) x10*3/uL Absolute Nucleated RBC 0.000 (0.0-0.012) X10*3/uL Nucleated RBC % (auto) 0.0 (0.0-0.2) /100WBC Sodium 139 (135-145) mmol/L Potassium 4.2 (3.3-5.1) mmol/L Chloride 105 (96-108) mmol/L Carbon Dioxide 25 (22-29) mmol/L Anion Gap 13 (12-20) BUN 7 L (9-16) mg/dL Creatinine 0.85 (0.5-1.4) mg/dL Estim Creat Clear Calc 90.8 Estimated GFR > 60 Random Glucose 115 (60-115) mg/dL Calcium 9.3 (8.4-10.2) mg/dL Total Bilirubin 0.3 (0.0-1.0) mg/dL Direct Bilirubin 0.1 (0.0-0.5) mg/dL AST 15 (5-31) U/L ALT 7 (0-31) U/L Alkaline Phosphatase 84 (39-117) U/L Troponin I High Sens < 2.7 < 2.7 (<3.5-17.0) ng/L Total Protein 7.9 (6.5-8.0) g/dL Albumin 4.3 (3.5-5.0) g/dL Lipase 15 (8-78) U/L Urine Color Yellow Urine Appearance Clear Urine pH 7.0 (5.0-9.0) Ur Specific Roann 1.010 (1.005-1.025) Urine Protein Negative (Neg-Trace) mg/dL Urine Glucose (UA) Negative (Negative) mg/dL Urine Ketones Negative (Negative) mg/dL Urine Blood Negative (Negative) Urine Nitrite Negative (Negative) Ur Leukocyte Esterase Negative (Negative) Urine Test NEGATIVE (NEGATIVE) Influenza Type A (PCR) NEGATIVE (Negative) Influenza Type B (PCR) NEGATIVE (Negative) RSV RNA Qual (PCR) NEGATIVE (Negative) SARS-CoV-2 RNA (RT-PCR) NEGATIVE (Negative) Independent Interpretation I performed an independent interpretation of an: EKG (Normal sinus rhythm, 86 beats per minute, normal LA interval and QTC, no significant change from prior) and Plain X-Ray Interpretation: Chest x-rays without evidence of pneumonia, pneumothorax, cardiomegaly Radiology Impression Discussion of test interpretation with radiology: I have reviewed the radiologist's reading. Radiologist Impression: XR/XR chest 1V IMPRESSION: No acute cardiopulmonary process. External Record Review External record reviewed: Inpatient record, Office record and Outpatient record Chronic Conditions Patient?s care impacted by: Other Discharge Plan Discharge Clinical Impression: Viral illness, Gastroenteritis Patient Disposition: Home, Self-Care Instructions: Gastroenteritis (DC), Acute Nausea and Vomiting (ED), Acute Diarrhea (ED), Viral Syndrome (ED) Additional Instructions: You have been evaluated in the emergency department today for epigastric/chest pain, nausea, vomiting, and diarrhea. Your evaluation suggests that your symptoms are most likely due to a viral illness which will improve on it's own with rest and fluids. Remember to drink plenty of fluids at home. You are being prescribed ondansetron which you can use as per the prescription instructions for nausea. You can also use over the counter Maalox. Please follow up with your primary care provider within two days. Return to the emergency department if you experience worsening or uncontrolled pain, inability to tolerate fluids by mouth, difficulty breathing, fevers 100.4? F or greater, recurrent vomiting, or any other concerning symptoms. Prescriptions: New ondansetron 4 mg tablet,disintegrating 4 mg PO Q8H PRN (Reason: nausea and vomiting) Qty: 10 0RF No Action amoxicillin-pot clavulanate 875-125 mg tablet 1 tab PO BID Qty: 14 0RF fluoxetine 40 mg capsule 40 mg PO DAILY trazodone 50 mg tablet 50 mg PO BEDTIME lorazepam 1 mg tablet 1 mg PO TID propranolol 10 mg tablet 10 mg PO TID sumatriptan succinate 25 mg tablet 25 mg PO Q2-4H PRN (Reason: migraine headache) 30 Days Qty: 9 0RF Rx Instructions: do not exceed 8 doses per 24 hrs Print Language: Cymro
[2024-07-17 12:55] VITALS: BP 132/66; PULSE 71; RESP 16; TEMP 36.6; O2SAT 100
[2024-07-17 12:58] LABS: Troponin-I High Sensitivity < 2.7 ng/L (<3.5-17.0)
[2024-07-17 13:19] LABS: Influenza A PCR NEGATIVE (Negative); Influenza B PCR NEGATIVE (Negative); Resp Syncy Virus RNA Qual PCR NEGATIVE (Negative); SARS COV2 PCR INHOUSE NEGATIVE (Negative)
[2024-07-17] MEDS: 0.9 % Sodium Chloride 1,000 ML 999 ML IV (14:19)
[2024-07-17] MEDS: ondansetron HCL 4 MG/2 ML VIAL IVPUSH (14:22)
[2024-07-17] MEDS: Ketorolac Tromethamine 15 MG/ML VIAL IVPUSH (14:22)
[2024-07-17] MEDS: Lidocaine HCl Viscous 2 % 15 ML SOLUTION 5 ML MUCOUS MEM (15:45)
[2024-07-17] MEDS: Magnesium Hydrox/Alum Hydrox 30 ML ORAL.SUSP 15 ML PO (15:48)
[2024-07-17 17:06] VITALS: BP 115/78; PULSE 68; RESP 20; TEMP 36.6; O2SAT 98
[2024-07-17 17:52] VITALS: BP 115/78; PULSE 68; RESP 20; TEMP 36.6; O2SAT 98
== END 2024-07-17 17:58 | disposition home or self-care (01) ==
PROVIDERS: Emergency Provider Emergency Medicine; PCP Internal Medicine
DX: B34.9 Viral infection, unspecified (principal); K52.9 Noninfective gastroenteritis and colitis, unspecified; R07.89 Other chest pain; R11.2 Nausea with vomiting, unspecified; R10.13 Epigastric pain; Z03.818 Encounter for observation for suspected exposure to other biological agents ruled out; Z79.899 Other long term (current) drug therapy
CPT/HCPCS: 0241U; 36415; 71045; 80048; 80076; 81003; 81025; 83690; 84484; 85025; 93005; 96361; 96374; 96375; 99284; 99285; J1885; J2405

== ENCOUNTER 2024-07-28 13:36 | Outpatient (AMB) | payer OTHER, SELFPAY ==
[2024-07-28 13:40] VITALS: PULSE 80; O2SAT 100; BMI 25.2
--- NOTE | 2024-07-28 13:40 | A.OFFVIS_ITS ---
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 Food Cooking Machine Operator Services: Food Cooking Machine Operator Present Food Cooking Machine Operator Name: brenda azar Information Interpreted: non-clinical & clinical Allergies No Known Allergies [NO KNOWN ALLERGIES] Allergy (Unknown, Verified 07/28/24 13:44) unknown Medication List - Last Reconciled 07/28/24 by BRAYDEN Acosta amoxicillin-pot clavulanate 875-125 mg 1 tab PO BID fluoxetine 40 mg PO DAILY lorazepam 1 mg PO TID ondansetron 4 mg PO Q8H PRN propranolol 10 mg PO TID sumatriptan succinate 25 mg PO Q2-4H PRN 30 days trazodone 50 mg PO BEDTIME HPI Comments Details: Right-handed 29-yr-old female presents for new pt evaluation of headache disorder. Pt reports she has had headcahes for some time (not sure how long), but these worsened in severity and frequency a year ago. PMH and ROS are notable for:? General: at times dizziness. Musculoskeletal disorders or injury: Low back pain x's 3 weeks. Sometimes her hands fall asleep. Mood d/o: Anxiety, Depression MANAGER OF DISTRIBUTION: Menses is regular. Family planning: none Pertinent denials include: History of concussion/head injury, Mood d/o, Respiratory d/o, CV disease, Clotting or hematology d/o, Endocrine d/o, metabolic d/o, History of seizure, syncope, or drop attacks, GI d/o, Constipation, Leg Cramps, Family history of migraine or other headache disorder Lifestyle considerations: Sleep routine: Usual bedtime: 11pm and wake-up time: 6pm Sleep difficulties: At times daytime tiredness. Caffeine use: 3-4 cups of coke per day Substance use: Denies Exercise:? at times, goes to the gym Employment:? not working- Family planning: h/o tubal ligation. Denies h/o epidural. Headache questionnaire:? Preceding causes: none Previous work-up: none Typical headache characteristics: Prodrome symptoms: Denies Aura: Denies Pain intensity: moderate-severe Location, quality, characteristics: Begins as pulsating and pounding pain in bilateral temples, and left face/eyelid, and moves into the whole head, especially the left neck. Associated symptoms: sees white starts when more severe, allodynia, nausea, not right in space dizziness, fatigue, cognitive difficulties, activity intolerance, high-pitched bilateral tinnitus. Postdrome: lingers Triggers: hunger Time of day: Wakes up with the headache Duration and Frequency: Constant mild-moderate headache, which is more severe for hours 4-5 days per week. How does headache impact your life? at times, cannot do her daily activities. Current acute medication use/interventions: Advil 400mg TID- using for severe headaches- does not help much. Current preventative medication use: On propranolol 10mg for anxiety x's > 1 yr. Non-pharmacological interventions: rest [facility] Medical History (Updated 07/28/24 @ 15:39 by BRAYDEN Acosta) Anxiety and depression No pertinent past medical history Surgical History History of tubal ligation Family History Mother Hypertension Father No problems noted. Social History Housing: Apartment Alcohol intake: never Patient Tobacco Use Status: Never used Tobacco e-Cigarette/Vaping Use: Never Used Second Hand Smoke Exposure: No service: No Current occupational status: unemployed Cognitive needs: No Hearing needs: No Vision needs: No Physical Exam Vital Signs: Last Vital Signs Pulse 80 07/28/24 13:40 Pulse Ox 100 07/28/24 13:40 Oxygen Delivery Method Room Air 07/28/24 13:40 BMI result Body Mass Index 25.2 Const Orientation/consciousness: patient oriented x3 Resp Effort & Inspection: normal respiratory effort and able to speak in complete sentences Neuro Other: Bilateral, L > R, eye flutter on eye closure. Asymmetric palpebral fissure, L > R. Pt states this comes and goes. Diffuse palpable scalp tenderness. TMJ- tight jaw opening, signs of lower teeth wearing. Bilateral posterior cervical tightness. Left posterior cervical non-radiating tenderness, exacerbated by Spurling test. Cervical ROM: limited in extension and left lateral rotation. Left Spurling: normal Right Spurling: normal. Negative bilateral Tinel, Phalen, Medial compression tests. General: patient oriented x3 Cranial nerves: Yes Bilaterally intact EOM present, Yes Nystagmus not present, Yes Symmetric palate elevation present and Yes Ability to bilaterally elevate shoulders present Cognition (Neuro): normal cognition Gait exam (Neuro): Normal gait present Motor exam (neuro): 5/5 motor strength present throughout Deep tendon reflexes (DTR's): Right triceps reflex intensity grade: 2+, Left triceps reflex intensity grade: 2+, Rt Biceps (C5, C6): 2+, Left biceps reflex intensity grade: 2+, Right brachioradialis reflex intensity grade: 2+, Left brachioradialis reflex intensity grade: 2+, Right patellar reflex intensity grade: 2+ and Left patellar reflex intensity grade: 2+ Coordination: [id number] test normal, tandem gait normal and Romberg test negative Pupils: Normal pupillary reactivity/response: bilateral Psych Appearance: grossly normal Mental Status: mental status grossly normal Speech and movement: Normal speech and movement present Affect: normal affect Attitude: cooperative Thought process: Normal thought process present Assessment & Plan Assessment & Plan (1) Worsening headaches: Code(s): R51.9 - Headache, unspecified Category: Medical (2) Snoring: Code(s): R06.83 - Snoring Category: Medical (3) 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 Category: Medical (4) Fluttering of eyelid: Code(s): G51.4 - Facial myokymia Category: Medical (5) Cervicalgia: Code(s): M54.2 - Cervicalgia Category: Medical (6) Excessive daytime sleepiness: Code(s): G47.19 - Other hypersomnia Category: Medical (7) Sleep difficulties: Code(s): G47.9 - Sleep disorder, unspecified Category: Medical (8) Migraines: Code(s): G43.909 - Migraine, unspecified, not intractable, without status migrainosus Category: Medical Plan Pt advised to undergo: Brain MRI w/wo to assess for secondary etiologies of worsening migraines, asymmetric L > R palpebral fissure, hand numbness and tingling. HST to assess for sleep apnea. XR- c-spine w/flex/ext PT eval & tx. For overall headache management: * Optimize good self-care, including but not limited to maintaining a healthy diet, adequate fluid intake, adequate sleep, and engaging in regular physical activity. * Track headaches, especially after any treatment regimen changes. Migraine [employer] is one of many headache tracking apps. For acute headache treatment: Discussed importance of taking acute medications at the first sign of headache, however stressed importance of avoiding acute medication overuse (especially with combined headache medications). Trial increasing Sumatriptan form 25mg to 100mg tab, 1/2 - 1 tab (50-100mg) at onset of headache, may repeat in 2 hours. Max of 2 tabs (200mg) per 24 hours. May adjunct with OTC Tylenol 650mg q 4 hours, Ibuprofen 600mg q 6 hours, or Naproxen 440mg q 12 hrs prn. Potential adverse effects of triptans, include but are not limited to nausea, fatigue, chest tightness/tingling (usually passes within a few minutes), medication overuse headaches. Previous acute migraine medication trials: Sumatriptan 25mg- ineffective w/o adverse effects. Acute migraine medication contraindications: None at this time For headache prevention medication: Preventative medications should be taken routinely as prescribed for best effect, it may take several weeks for full effect to take effect. Start Riboflavin 400mg qam Start Magnesium 400mg qhs Start Cyclobenzaprine 5mg qhs. Start Amitriptyline 10mg daily at bedtime. Potential side effects include but are not limited to fatigue, cardiac arrhythmias, mood changes. Pt advised she may stagger starting these. Continue Propranoolol 10mg bid- used for anxiety. Would not increase further d/t HR already prone to run in 60s. Previous migraine prevention medication trials: none other Migraine prevention medication contraindications: None at this time Pt seen in collaboration w/ Dr Roxana Douglas. Will follow-up upon review of above and patient to follow-up in clinic in 3-4 months or sooner prn. Orders: Orders MR head/brain wo/w con Today G51.4 - Facial myokymia, Q67.0 - Congenital facial asymmetry, R20.2 - Paresthesia of skin, R51.9 - Headache, unspecified RT home sleep study Today G47.19 - Other hypersomnia, G47.9 - Sleep disorder, unspecified, R06.83 - Snoring PT Evaluation and Treatment Today M54.2 - Cervicalgia XR cervical spine w flex/ext Today M54.2 - Cervicalgia Medications: New sumatriptan succinate (0.5 - 1 x 100 mg) 50 - 100 mg orally at onset of headache, may repeat in 2 hrs PRN; max 2 tabs per day or 4 tabs/week (may take with Ibuprofen) 30 days 12 tabs 6RF migraine headache riboflavin (vitamin B2) 400 mg PO DAILY 30 days 30 tabs 6RF cyclobenzaprine 5 mg PO BEDTIME 30 days 30 tabs 1RF amitriptyline 10 mg PO BEDTIME 30 days 30 tabs 3RF magnesium oxide may hold for loose stools 400 mg PO BEDTIME 30 days 30 tabs 6RF Changed From propranolol 10 mg PO TID To propranolol 10 mg PO BID Discontinued sumatriptan succinate do not exceed 8 doses per 24 hrs Discontinued Reason: Doctor's Order 25 mg PO Q2-4H 30 days PRN 9 tabs 0RF migraine headache G43.909 - Migraine, unspecified, not intractable, without status migrainosus Coding Level of Care Code New Pt Level 4 (34879) Diagnoses Worsening headaches R51.9 Snoring R06.83 Asymmetry of face Q67.0 Fluttering of eyelid G51.4 Cervicalgia M54.2 Excessive daytime sleepiness G47.19 Sleep difficulties G47.9 Migraines G43.909
== END 2024-07-28 15:00 | disposition home or self-care (01) ==
PROVIDERS: PCP Internal Medicine; Visit Provider Nurse Practitioner Family
DX: R51.9 Headache, unspecified (principal); R06.83 Snoring; Q67.0 Congenital facial asymmetry; G51.4 Facial myokymia; M54.2 Cervicalgia; G47.19 Other hypersomnia; G47.9 Sleep disorder, unspecified; G43.909 Migraine, unspecified, not intractable, without status migrainosus
CPT/HCPCS: 99204

== ENCOUNTER → 2024-07-28 13:36 | Outpatient (BNVA) | payer OTHER, SELFPAY | PROVIDERS: PCP Internal Medicine; Visit Provider Nurse Practitioner Family | DX: G43.909 Migraine, unspecified, not intractable, without status migrainosus (principal); G47.19 Other hypersomnia; G51.4 Facial myokymia; R06.83 Snoring; Q67.0 Congenital facial asymmetry; M54.2 Cervicalgia | CPT/HCPCS: 99202 ==

== ENCOUNTER 2024-07-29 13:37 | Outpatient (AMB) | payer OTHER, SELFPAY ==
--- NOTE | 2024-07-29 14:08 | A.OFFPC_ITS ---
Vital Signs 07/29/24 14:09 Height 5 ft 4 in Weight 147 lb 8 oz BMI 25.3 BP 110/70 Blood Pressure Location Lt brachial Position Sitting Pulse 76 Pulse Source Pulse Oximeter Pulse Oximetry (%) 96 Oxygen Delivery Method Room Air Intake Visit Reasons: EDF [facility] 9 Stomach Pain/Nausea Intake Note: Patient is here to follow-up after a visit the emergency department at [facility] on 07/17/24 Bleacher Pulp Required: Yes Bleacher Pulp Language: Supervisor Cigar Making Hand Name: Олег Melendez ([id number]) Information Interpreted: non-clinical & clinical Back Up Worker: Not Required per policy Accompanied by: Self / Same As Patient Allergies No Known Allergies [NO KNOWN ALLERGIES] Allergy (Unknown, Verified 07/29/24 14:09) unknown Tobacco use date assessed: 07/29/24 Dental Screening Dental Screen Date: 02/07/24 HPI HPI Comments History of Present Illness Details 29 y/o female patient who presents to [facility] for EDF. She was admitted at [facility] ED on 07/17/24 and discharged home the same day. She was evaluated for Gastroenteritis and prescribed Zofran with good symptom relief. Today Pt reports mild discomfort after eating certain foods. [facility] Medical History (Updated 07/28/24 @ 15:39 by BRAYDEN Acosta) Anxiety and depression No pertinent past medical history Surgical History History of tubal ligation Family History Mother Hypertension Father No problems noted. Social History Housing: Apartment Alcohol intake: never Patient Tobacco Use Status: Never used Tobacco e-Cigarette/Vaping Use: Never Used Second Hand Smoke Exposure: No service: No Current occupational status: unemployed Cognitive needs: No Hearing needs: No Vision needs: No Questionnaire Thrive Questionnaire Date Thrive assessed: 02/07/24 YARA-7 AMB Questionnaire YARA-7 Date YARA - 7 assessed: 02/07/24 Source: Developed by Drs. Naseem Hartman, Jeanie Osuna, Altaf Hernandez and colleagues, with an educational anya from [employer] Review of Systems Const All systems reviewed & are unremarkable except as noted in HPI and below Physical exam (Primary Care) Vital Signs: Last Vital Signs Pulse 76 07/29/24 14:09 BP 110/70 07/29/24 14:09 Pulse Ox 96 07/29/24 14:09 Oxygen Delivery Method Room Air 07/29/24 14:09 BMI result Body Mass Index 25.3 Tobacco/Smoking Status: Tobacco use Status Tobacco use date assessed 07/29/24 07/29/24 14:18 Patient Tobacco Use Status Never used Tobacco 07/29/24 14:18 e-Cigarette/Vaping Use Never Used 07/29/24 14:18 Thrive Assessment: Date of Thrive Assessment Date Thrive assessed 02/07/24 07/29/24 14:18 Const General: cooperative, comfortable and no acute distress Nutritional Appearance: well nourished Orientation/consciousness: patient oriented x3 Limitations: language barrier Resp Effort & Inspection: normal respiratory effort Cardio Heart sounds: S1 normal heart sound present and S2 normal heart sound present GI Palpation (GI): Soft to palpation, not firm, Tenderness to palpation present (GI) in the epigastrum, no guarding, not rigid and No hepatosplenomegaly present Auscultation: Hypoactive bowel sounds present Rectal Exam - Female: deferred General: Yes no CVA tenderness Back/Spine/Pelvis Back: no CVA tenderness Neuro General: patient oriented x3, gait normal and moves all extremities Psych Speech and movement: Normal speech and movement present Assessment and Plan Assessment & Plan (1) Gastroenteritis: Code(s): K52.9 - Noninfective gastroenteritis and colitis, unspecified Plan: Ordered Famotidine 40 mg at Bedtime Educated on proper diet; avoid Spicy, oily foods. Avoid Tomatoes or Acid forming foods. Medications: New famotidine 40 mg PO BEDTIME 90 tabs 0RF K52.9 - Noninfective gastroenteritis and colitis, unspecified Coding Level of Care Code Est Pt Level 4 (58165) Diagnoses Gastroenteritis K52.9 Time Spent (min) 20 Comment Spent on reviewing hospital notes and patient education.
[2024-07-29 14:09] VITALS: BP 110/70; PULSE 76; O2SAT 96; BMI 25.3
== END 2024-07-29 14:35 | disposition home or self-care (01) ==
PROVIDERS: PCP Internal Medicine; Visit Provider Nurse Practitioner Family
DX: K52.9 Noninfective gastroenteritis and colitis, unspecified (principal)

== ENCOUNTER → 2024-07-29 13:37 | Outpatient (BNVA) | payer OTHER, SELFPAY | PROVIDERS: PCP Internal Medicine; Visit Provider Nurse Practitioner Family | DX: K52.9 Noninfective gastroenteritis and colitis, unspecified (principal) | CPT/HCPCS: 99212 ==

== ENCOUNTER → 2024-09-01 11:21 | Outpatient (BNV) | payer OTHER, SELFPAY | PROVIDERS: PCP Internal Medicine; Visit Provider Radiology Diagnostic Radiology | DX: R51.9 Headache, unspecified (principal); R20.2 Paresthesia of skin | CPT/HCPCS: 70553 ==

== ENCOUNTER 2024-09-01 11:22 | Outpatient (REF) | payer OTHER, SELFPAY ==
--- NOTE | ~2024-09-01 | MR_ITS ---
EXAMINATION: MR BRAIN WITHOUT AND WITH CONTRAST CLINICAL INFORMATION: Left-sided pain. Headache. Numbness in the right hand. COMPARISON: None available. TECHNIQUE: Multiplanar, multisequence MRI of the brain was obtained before and after the intravenous administration of 7 mL of gadolinium based (Gadavist ) without reported immediate complications. FINDINGS: No restricted diffusion. No intra-axial or extra-axial enhancing lesion/mass. No acute intracranial hemorrhage, mass effect, midline shift, hydrocephalus or herniation. Craig-white matter differentiation is normal. Posterior cranial fossa contents demonstrated no signal abnormality or enhancing lesion. Flow-void signal within the main cerebral vessels is normal. Sellar/suprasellar region is normal. Craniocervical junction is intact and normal. MR/MR head/brain wo/w con IMPRESSION: No acute or structural brain abnormality. No enhancing lesion. Electronically signed by: Nino Vale MD 09/01/2024 02:19 PM EDT
[2024-09-01] MEDS: gadobutroL 7.5 ML VIAL IVPUSH (12:27)
== END 2024-09-01 11:23 | disposition home or self-care (01) ==
LOC: HO.MRI 11:22
PROVIDERS: PCP Internal Medicine; Visit Provider Nurse Practitioner Family
DX: Q67.0 Congenital facial asymmetry (principal); G51.4 Facial myokymia; R51.9 Headache, unspecified; R20.2 Paresthesia of skin
CPT/HCPCS: 70553; A9585

== ENCOUNTER → 2024-09-04 15:01 | Outpatient (REF) | payer OTHER, SELFPAY | LOC: HO.SL 15:01 | PROVIDERS: PCP Internal Medicine; Visit Provider Nurse Practitioner Family | DX: R06.83 Snoring (principal); G47.19 Other hypersomnia; G47.9 Sleep disorder, unspecified | CPT/HCPCS: 95806 ==

== ENCOUNTER → 2024-09-04 15:20 | Outpatient (BNV) | payer OTHER, SELFPAY | PROVIDERS: PCP Internal Medicine; Visit Provider Psychiatry & Neurology Neurology | DX: R06.83 Snoring (principal); G47.10 Hypersomnia, unspecified | CPT/HCPCS: 95806 ==

== ENCOUNTER 2024-09-29 10:25 | Outpatient (RCR) | payer OTHER, SELFPAY ==
--- NOTE | 2024-08-28 17:04 | MHC.PT.EP ---
[facility] [place] Office [place] Office [place] Office [address] Abdon Miner [address] [phone] F: [phone] F: [phone] F: [phone] F: [phone] Physical Therapy Plan of Care Date of Evaluation: 08/28/24 Date of Surgery: Diagnosis: cervicalgia. Assessment: Pt is a 29 y/o female with Hx of migraine who is referred to PT for eval and treat of cervicalgia which is resulting in decreased tolerance for lifting objects of weight and watching TV/ videos, turning her head while driving, as well as disturbed sleep secondary to increased cervical accessory tissue tension, L sided posterior cervical TTP, decreased posture, decreased scapular strength, poor bedtime postures, frequent ROSAS with migraine and pain. Pt is deemed an appropriate candidate to receive skilled PT services to address their physical impairments in order to improve their functional ability. Frequency and Duration: The patient will be seen 2 x/ wk x 3 wks. Short Term Goals: initiate home program. Improve baseline cervical pain to at most 3/5. Detention Goals: I with home program. Pt will reports ROSAS that are moderate and come and go; initial: severe and all the time. Pt will report no longer disturbed of sleep d/t neck pain. Pt will be able to lift objects of weight with managed cervical Sx. Treatment Plan: Modalities to reduce pain, spasms and effusion. Manual therapy to restore motion and function. Therapeutic exercise to improve strength and flexibility. Neuromuscular re-education for posture and balance. Therapeutic activities to return to functional activities of daily living. Electronically signed by: Adan Mcduffie PT. Please sign and return to therapist. Thank you for your referral.
--- NOTE | 2025-02-16 08:21 | MHC.PT.DC ---
[facility] [place] Office [place] Office [place] Office [address] Abdon Miner [address] [phone] F: [phone] F: [phone] F: [phone] F: [phone] Physical Therapy Discharge Report Diagnosis: cervicalgia. Date of Surgery: Date of Evaluation: 08/28/24 Date of Discharge: 02/16/25 Treatments to Date: 4 Cancellations to Date: 1 No Shows to Date: 1 Discharge Status: Patient Elected to Stop Discharge Summary: . Electronically signed by: Adan Mcduffie PT. Please sign and return to therapist. Thank you for your referral.
== END 2025-02-16 08:20 | disposition home or self-care (01) ==
LOC: HO.PT 10:25
PROVIDERS: PCP Internal Medicine; Visit Provider Nurse Practitioner Family
DX: M54.2 Cervicalgia (principal)
CPT/HCPCS: 97110; 97140; 97161; 97535

== ENCOUNTER 2024-11-20 13:11 | Outpatient (REF) | payer OTHER, SELFPAY ==
[2024-11-21 09:06] LABS: Bacterial Vaginosis PCR NEGATIVE (Negative); Candida Group PCR NOT DETECTED (Not Detect); Candida glab krusei PCR NOT DETECTED (Not Detect); Trichomonas vaginalis PCR NOT DETECTED (Not Detect)
[2024-11-21 09:09] LABS: CT PCR NOT DETECTED (Not Detect.); NG PCR NOT DETECTED (Not Detect.)
== END 2024-11-20 13:12 | disposition home or self-care (01) ==
LOC: HO.LAB 13:11
PROVIDERS: PCP Internal Medicine; Visit Provider Advanced Practice Midwife
DX: N89.8 Other specified noninflammatory disorders of vagina (principal)
CPT/HCPCS: 81515; 87491; 87591; 99212

== ENCOUNTER 2024-11-20 13:11 | Outpatient (AMB) | payer OTHER, SELFPAY ==
--- NOTE | 2024-11-20 13:12 | MHC.OFFVIS ---
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 Services: Supervisor Pipeline Maintenance Present Information Interpreted: clinical only Certified Physician'S Assistant: Certified Physician'S Assistant Present Allergies No Known Allergies [NO KNOWN ALLERGIES] Allergy (Unknown, Verified 11/20/24 13:18) unknown Medication List - Last Reconciled 11/20/24 by Patricia Weems CNM amitriptyline 10 mg PO BEDTIME 30 days cyclobenzaprine 5 mg PO BEDTIME 30 days famotidine 40 mg PO BEDTIME fluoxetine 40 mg PO DAILY lorazepam 1 mg PO TID magnesium oxide 400 mg PO BEDTIME 30 days ondansetron 4 mg PO Q8H PRN propranolol 10 mg PO BID riboflavin (vitamin B2) 400 mg PO DAILY 30 days sumatriptan succinate 50 - 100 mg orally at onset of headache, may repeat in 2 hrs PRN; max 2 tabs per day or 4 tabs/week (may take with Ibuprofen) 30 days trazodone 50 mg PO BEDTIME Is last menstrual period known: Yes Last menstrual period: 11/18/24 HPI HPI vaginal cyst/std testing: Details: Patient is here because she has swelling that she wants to get checked out it started 2 days ago and it has been hurting since yesterday she has her period that started 2 days ago as well. She also wants to get checked for STIs she says she has an appointment coming up for her annual. [facility] Medical History Anxiety and depression No pertinent past medical history Surgical History History of tubal ligation Family History Mother Hypertension Father No problems noted. Social History Housing: Apartment Alcohol intake: never Patient Tobacco Use Status: Never used Tobacco e-Cigarette/Vaping Use: Never Used Second Hand Smoke Exposure: No service: No Current occupational status: unemployed Cognitive needs: No Hearing needs: No Vision needs: No Female Reproductive History Menstrual Age of Menarche: 11 Duration of menses: 3-5 days Date of last menstrual period: 11/18/24 control method: permanent sterilization Total pregnancies: 3 Full term: 3 Date of last pap smear: 12/12/23 (negative) Physical Exam Vital Signs: Last Vital Signs BP 110/62 11/20/24 13:13 BMI result Body Mass Index 25.2 Other: On mons pubis superior to left inguinal/groin area, there is a 1 x 2 cm slightly raised pink swollen area consistent with folliculitis of note the patient does not shave. There is no suspicious lesion. Vagina is pink and moist with light menstrual fluid multiparous cervix is pink moist. External Female Exam: normal external appearance and normal appearance of the urethra Speculum Exam - Vagina: normal appearance of the vagina and normal vaginal discharge Speculum Exam - Cervix: normal appearance of the cervix and Cervical os closed Results Reviewed Results Reviewed: Name: Melvi Carey Age/Sex: 28/F Attending: Patricia Weems CNM : 1995 Submitted by: Patricia Weems CNM Copies to: Brielle Mitchell MD MR #: [id number] Status: DEP REF Collected: 12/11/23 Location: .LAB Received: 12/12/23 Interpretation Satisfactory for evaluation. No endocervical cells seen. Negative for intraepithelial lesion or malignancy. Clinical Information LMP: 11/20/2023 Previous PAP test: Unknown date/findings Material Received ThinPrep-Cervical Copies To Patricia Weems CNM [address] [place] [address] [address]. [address] [address] Brielle Mitchell MD [address] [place] [address] [address]. [address] [address] Electronically Signed By: DAWNA Chris (ASCP) 12/25/23 1035 The Pap Test is a screening procedure with the inherent possibility of both false negative and false positive results. Results should be interpreted in the context of historic and current clinical findings. Reliability of the Pap Test is enhanced by performing the test on a regular repetitive basis. Patient: Melvi Carey Age/Sex: 28/F MR#: [id number] Page 1 of 1 Assessment & Plan Assessment & Plan (1) Encounter for screening examination for sexually transmitted disease: Code(s): Z11.3 - Encounter for screening for infections with a predominantly sexual mode of transmission Category: Medical (2) Folliculitis: Code(s): L73.9 - Follicular disorder, unspecified Category: Medical Plan She wishes to go get tested for blood work for STIs so testing ordered for HIV hep B hep C and syphilis. Had discussed with patient prior to seeing her lesion that if it appeared at all like herpes I will be doing a culture and was prepared to do so however this lesion in no way whatsoever represents any STI based lesion. It appears to be consistent with simple folliculitis. Discussed that even though she does not shave it is possible for any hair follicle or other poor to have bacteria enter usually where there was friction from the elastic of underwear or other article a clothing. Discussed that this is not a worrisome finding and simply putting either a warm compress on it or letting order run on the shower and resisting garzon to squeeze it if it starts coming to ahead is all she needs to do. Discussed that these are usually self-limited and are very common and most human beings encounter them at 1 point or another Discussed that if ever something like it became more and more inflamed expanding in area larger and larger and larger such as a mosquito bite that becomes infected (and develops a cellulitis) after scratching, that is something that might be necessary to follow-up on depending on the extent, but this is appears very small self-limited and does not extend into the groin area. Lab orders placed for blood tests for STIs. Next visit for annual. Orders: Orders Hepatitis B Surface Antigen Today L73.9 - Follicular disorder, unspecified, Z11.3 - Encounter for screening for infections with a predominantly sexual mode of transmission Hepatitis C Antibody Today L73.9 - Follicular disorder, unspecified, Z11.3 - Encounter for screening for infections with a predominantly sexual mode of transmission HIV Ab/Ag Today L73.9 - Follicular disorder, unspecified, Z11.3 - Encounter for screening for infections with a predominantly sexual mode of transmission Syphilis Screen Today L73.9 - Follicular disorder, unspecified, Z11.3 - Encounter for screening for infections with a predominantly sexual mode of transmission Coding Level of Care Code Est Pt Level 3 (11936) Diagnoses Encounter for screening examination for sexually transmitted disease Z11.3 Folliculitis L73.9
[2024-11-20 13:13] VITALS: BP 110/62; BMI 25.2
== END 2024-11-20 13:47 | disposition home or self-care (01) ==
LOC: HO.HWSM 13:11
PROVIDERS: PCP Internal Medicine; Visit Provider Advanced Practice Midwife
DX: Z11.3 Encounter for screening for infections with a predominantly sexual mode of transmission (principal); L73.9 Follicular disorder, unspecified
CPT/HCPCS: 99213

== ENCOUNTER 2024-11-20 13:51 | Outpatient (REF) | payer OTHER, SELFPAY ==
[2024-11-21 04:08] LABS: Syphilis Screen Nonreactive (Nonreactive)
[2024-11-21 04:31] LABS: HBsAGNum1 0.42 S/CO (0.00-0.99); HIV AB/AG Nonreactive (Nonreactive); HIV Num 1 0.05 S/CO (0.00-0.99); Hepatitis B Surface Antigen Negative (Negative); ~Hepatitis C Antibody Nonreactive (Nonreactive)
== END 2024-11-20 13:52 | disposition home or self-care (01) ==
LOC: HO.HHCL 13:51
PROVIDERS: Visit Provider Advanced Practice Midwife
DX: Z11.3 Encounter for screening for infections with a predominantly sexual mode of transmission (principal); L73.9 Follicular disorder, unspecified
CPT/HCPCS: 36415; 81515; 86780; 86803; 87340; 87389; 87491; 87591; 99212

== ENCOUNTER 2024-12-10 13:41 | Outpatient (AMB) | payer OTHER, SELFPAY ==
--- NOTE | 2024-12-10 13:43 | MHC.OFFVIS ---
Vital Signs 12/10/24 13:44 Height 5 ft 4 in Weight 144 lb 4 oz BMI 24.8 BP 118/70 Blood Pressure Location Rt brachial Position Sitting Pulse 93 Pulse Source Pulse Oximeter Pulse Oximetry (%) 100 Oxygen Delivery Method Room Air Intake Visit Reasons: Follow up Intake Note: Patient present for follow up migraine. Patient having migraines daily and pain lft eye Bus And Trolley Inspecting Dispatcher Required: Yes Bus And Trolley Inspecting Dispatcher Name: [id number] Information Interpreted: non-clinical only Allergies No Known Allergies [NO KNOWN ALLERGIES] Allergy (Unknown, Verified 12/17/24 15:01) unknown Medication List - Last Reconciled 12/10/24 by Brenda Rubio, BRAYDEN baclofen 5 - 10 mg (1 - 2 x 5 mg) PO BEDTIME PRN 30 days famotidine 40 mg PO BEDTIME fluoxetine 40 mg PO DAILY galcanezumab-gnlm (Emgality Pen) 240 mg (2 mL) subcut ONCE 30 days lorazepam 1 mg PO TID magnesium oxide 400 mg PO BEDTIME 30 days naproxen 500 mg PO BID PRN 30 days ondansetron 4 mg PO Q8H PRN propranolol 10 mg PO BID riboflavin (vitamin B2) 400 mg PO DAILY 30 days rizatriptan 5 - 10 mg (0.5 - 1 x 10 mg) PO Q2H PRN 30 days trazodone 50 mg PO BEDTIME HPI Comments Details: Right-handed 29-yr-old female presents for follow-up of migraine. Patient reports her migraine burden as about the same. She continues to wake up with an almost daily migraine. She does continue to have neck tightness, more so in the left. She did not tolerate sumatriptan, cyclobenzaprine, or amitriptyline. XR C-spine has not yet been completed. 09/01/2024 brain MRI with and without contrast was unremarkable. 09/04/2024 home sleep study did not show evidence of sleep apnea, AHI 0.4 per hour and O2 jocelin 80% with average SpO2 97%. 07/28/2024, initial HPI: Pt reports she has had headache for some time (not sure how long), but these worsened in severity and frequency a year ago. PMH and ROS are notable for:? General: at times dizziness. Musculoskeletal disorders or injury: Low back pain x's 3 weeks. Sometimes her hands fall asleep. 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 Family planning: none Pertinent denials include: History of concussion/head injury, Mood d/o, Respiratory d/o, CV disease, Clotting or hematology d/o, Endocrine d/o, metabolic d/o, History of seizure, syncope, or drop attacks, GI d/o, Constipation, Leg Cramps, Family history of migraine or other headache disorder Lifestyle considerations: Sleep routine: Usual bedtime: 11pm and wake-up time: 6pm Sleep difficulties: At times daytime tiredness. Caffeine use: 3-4 cups of coke per day Substance use: Denies Exercise:? at times, goes to the gym Employment:? not working- Family planning: h/o tubal ligation. Denies h/o epidural. Headache questionnaire:? Preceding causes: none Previous work-up: none Typical headache characteristics: Prodrome symptoms: Denies Aura: Denies Pain intensity: moderate-severe Location, quality, characteristics: Begins as pulsating and pounding pain in bilateral temples, and left face/eyelid, and moves into the whole head, especially the left neck. Associated symptoms: sees white starts when more severe, allodynia, nausea, not right in space dizziness, fatigue, cognitive difficulties, activity intolerance, high-pitched bilateral tinnitus. Postdrome: lingers Triggers: hunger Time of day: Wakes up with the headache Duration and Frequency: Constant mild-moderate headache, which is more severe for hours 4-5 days per week. How does headache impact your life? at times, cannot do her daily activities. Current acute medication use/interventions: Advil 400mg TID- using for severe headaches- does not help much. Current preventative medication use: On propranolol 10mg for anxiety x's > 1 yr. Non-pharmacological interventions: rest [facility] Medical History Anxiety and depression No pertinent past medical history Surgical History History of tubal ligation Family History Mother Hypertension Father No problems noted. Social History Housing: Apartment Alcohol intake: never Patient Tobacco Use Status: Never used Tobacco e-Cigarette/Vaping Use: Never Used Second Hand Smoke Exposure: No service: No Current occupational status: unemployed Cognitive needs: No Hearing needs: No Vision needs: No Female Reproductive History Menstrual Age of Menarche: 11 Physical Exam Vital Signs: Last Vital Signs Pulse 93 12/10/24 13:44 BP 118/70 12/10/24 13:44 Pulse Ox 100 12/10/24 13:44 Oxygen Delivery Method Room Air 12/10/24 13:44 BMI result Body Mass Index 24.8 Const General: cooperative and no acute distress Orientation/consciousness: patient oriented x3 Resp Effort & Inspection: normal respiratory effort and able to speak in complete sentences Neuro General: patient oriented x3 Cranial nerves: Yes CN's II-XII intact bilaterally Cognition (Neuro): normal cognition Psych Appearance: grossly normal Mental Status: mental status grossly normal Speech and movement: Normal speech and movement present Affect: normal affect Attitude: cooperative Assessment & Plan Assessment & Plan (1) 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 Category: Medical (2) Fluttering of eyelid: Code(s): G51.4 - Facial myokymia Category: Medical (3) Cervicalgia: Code(s): M54.2 - Cervicalgia Category: Medical (4) Sleep difficulties: Code(s): G47.9 - Sleep disorder, unspecified Category: Medical (5) Migraines: Code(s): G43.909 - Migraine, unspecified, not intractable, without status migrainosus Category: Medical Qualifiers: Migraine type: chronic migraine (15 or more days per month) without aura Status migrainosus presence: without status migrainosus Intractability: not intractable Qualified Code(s): G43.709 - Chronic migraine without aura, not intractable, without status migrainosus (6) Migraine with aura: Comment: Has episodic visual aura during severe migraine attack- sees white stars Code(s): G43.109 - Migraine with aura, not intractable, without status migrainosus Category: Medical Plan Reviewed Brain MRI w/wo- unremarkable Reviewed HST- no evidence for sleep apnea For overall headache management: Optimize good self-care, including but not limited to maintaining a healthy diet, adequate fluid intake, adequate sleep, and engaging in regular physical activity. Track headaches, especially after any treatment regimen changes. Migraine [employer] is one of many headache tracking apps. https://headaches.org/migrana/ For cervicalgia: Patient advised to do XR- c-spine w/flex/ext has order PT eval & tx. Discontinue Cyclobenzaprine 5mg qhs- ineffective. Start baclofen 5 mg tab-1-2 tabs daily at bedtime as needed For acute headache treatment: Discussed importance of taking acute medications at the first sign of headache, however stressed importance of avoiding acute medication overuse (especially with combined headache medications). Discontinue Sumatriptan form 25mg to 100mg tab. Trial Rizatriptan 10mg tab, 1/2 - 1 tab (5-10mg) at onset of headache, may repeat in 2 hours. Max of 2 tabs (200mg) per 24 hours. May adjunct with OTC Tylenol 650mg every 4 hours, Ibuprofen (liquigel) 600mg every 6 hours, or Naproxen (liquigel) 440mg every 12 hrs as needed. Potential adverse effects of triptans, include but are not limited to nausea, fatigue, chest tightness/tingling (usually passes within a few minutes), medication overuse headaches. Previous acute migraine medication trials: Sumatriptan 25mg- ineffective w/o adverse effects. Sumatriptan 100 mg- not tolerated. Acute migraine medication contraindications: None at this time For headache prevention medication: Preventative medications should be taken routinely as prescribed for best effect, it may take several weeks for full effect to take effect. Continue Riboflavin 400mg qam Continue Magnesium 400mg qhs Stop Amitriptyline 10mg daily at bedtime- not tolerated Continue Propranolol 10mg bid- used for anxiety. Would not increase further d/t HR already prone to run in 60s. Start Emgality 120mg/ml auto-injection: Loading dose: 240mg (2 120mg/ml auto-injections) via subcutaneous injection in 2 different sites). Then 30 days after loading dose, start Maintenance dose: 120mg (120mg/ml autoinjector) subcutaneous injection every month. Patient requests injection training once Emgality available. Important considerations: Emgality will likely require insurance prior authorization prior to receiving it from the pharmacy. Potential side effects include allergic reaction and injection site reactions. Emgality injection training educational video is available to view on [employer] Store Emgality in the refrigerator in it's original packaging in order to protect from light. Remove Emgality at least 1 hour prior to taking the injection. Emgality can be left out of the fridge for?up to 7 days at a temperature not above 86?F. If either of these conditions are exceeded, then Emgality must be thrown away. Once Emgality has been stored out of refrigeration, do not place it back in the refrigerator. Previous migraine prevention medication trials: Amitriptyline 10 mg- not tolerated. Migraine prevention medication contraindications: None at this time Will follow-up upon review of above and patient to follow-up in clinic in 6 months or sooner prn. Medications: New galcanezumab-gnlm (Emgality Pen) Loading dose: 120 mg subcu injection x2 in alternate sites (total 240 mg). To be followed by maintenance dose of 120 mg subcu q.month. 240 mg (2 mL) subcut ONCE 2 mL 0RF 30 days naproxen 500 mg PO BID PRN 30 tabs 6RF migraine headache 30 days rizatriptan max 2 tabs per day or 4 tabs per week 5 - 10 mg (0.5 - 1 x 10 mg) PO Q2H PRN 12 tabs 3RF migraine headache 30 days baclofen 5 - 10 mg (1 - 2 x 5 mg) PO BEDTIME PRN 60 tabs 3RF muscle spasm 30 days Discontinued sumatriptan succinate Discontinued Reason: Doctor's Order (0.5 - 1 x 100 mg) 50 - 100 mg orally at onset of headache, may repeat in 2 hrs PRN; max 2 tabs per day or 4 tabs/week (may take with Ibuprofen) 30 days 12 tabs 6RF migraine headache cyclobenzaprine Discontinued Reason: Doctor's Order 5 mg PO BEDTIME 30 days 30 tabs 1RF amitriptyline Discontinued Reason: Doctor's Order 10 mg PO BEDTIME 30 days 30 tabs 3RF Coding Level of Care Code Est Pt Level 4 (95555) Diagnoses Asymmetry of face Q67.0 Fluttering of eyelid G51.4 Cervicalgia M54.2 Sleep difficulties G47.9 Chronic migraine without aura without status migrainosus, not intractable G43.709 Migraine type: chronic migraine (15 or more days per month) without aura Status migrainosus presence: without status migrainosus Intractability: not intractable Migraine with aura G43.109
[2024-12-10 13:44] VITALS: BP 118/70; PULSE 93; O2SAT 100; BMI 24.8
== END 2024-12-10 14:28 | disposition home or self-care (01) ==
PROVIDERS: PCP Internal Medicine; Visit Provider Nurse Practitioner Family
DX: Q67.0 Congenital facial asymmetry (principal); G51.4 Facial myokymia; M54.2 Cervicalgia; G47.9 Sleep disorder, unspecified; G43.709 Chronic migraine without aura, not intractable, without status migrainosus; G43.109 Migraine with aura, not intractable, without status migrainosus
CPT/HCPCS: 99214

== ENCOUNTER → 2024-12-10 13:41 | Outpatient (BNVA) | payer OTHER, SELFPAY | PROVIDERS: PCP Internal Medicine; Visit Provider Nurse Practitioner Family | DX: G43.709 Chronic migraine without aura, not intractable, without status migrainosus (principal); G43.109 Migraine with aura, not intractable, without status migrainosus; G47.9 Sleep disorder, unspecified; G51.4 Facial myokymia; Q67.0 Congenital facial asymmetry; M54.2 Cervicalgia | CPT/HCPCS: 99212 ==

== ENCOUNTER 2024-12-17 14:39 | Outpatient (AMB) | payer OTHER, SELFPAY ==
--- NOTE | 2024-12-17 14:59 | A.OFFVIS_ITS ---
Vital Signs 12/17/24 15:00 Height 5 ft 4 in Weight 144 lb BMI 24.7 BP 112/68 Intake Visit Reasons: Follow up folliculitis [facility] Interpret[employer] Specialist Services: [facility] Interpret[facility] Specialist Present Information Interpreted: clinical only Tug Captain: Tug Captain Present Allergies No Known Allergies [NO KNOWN ALLERGIES] Allergy (Unknown, Verified 12/17/24 15:01) unknown Medication List - Last Reconciled 12/17/24 by Patricia Weems CNM baclofen 5 - 10 mg (1 - 2 x 5 mg) PO BEDTIME PRN 30 days famotidine 40 mg PO BEDTIME fluoxetine 40 mg PO DAILY galcanezumab-gnlm (Emgality Pen) 240 mg (2 mL) subcut ONCE 30 days lorazepam 1 mg PO TID magnesium oxide 400 mg PO BEDTIME 30 days naproxen 500 mg PO BID PRN 30 days ondansetron 4 mg PO Q8H PRN propranolol 10 mg PO BID riboflavin (vitamin B2) 400 mg PO DAILY 30 days rizatriptan 5 - 10 mg (0.5 - 1 x 10 mg) PO Q2H PRN 30 days trazodone 50 mg PO BEDTIME Is last menstrual period known: Yes Last menstrual period: 12/13/24 HPI HPI Follow up folliculitis: Details: Patient is here because she feels the folliculitis that she had an her mons pubis in November has flared up again and gotten a little bit worse she says it hurts her little bit more she has been putting warm soaks on it. There is no surrounding redness or inflammation but it does not appear a little bit more hardened. In addition the patient was concerned because she could not find the results of her labs in the portal and she did not get a call for the results and she is worried about the STI testing results [facility] Medical History (Updated 12/17/24 @ 16:13 by Patricia Weems CNM) Anxiety and depression No pertinent past medical history Surgical History History of tubal ligation Family History Mother Hypertension Father No problems noted. Social History Housing: Apartment Alcohol intake: never Patient Tobacco Use Status: Never used Tobacco e-Cigarette/Vaping Use: Never Used Second Hand Smoke Exposure: No service: No Current occupational status: unemployed Cognitive needs: No Hearing needs: No Vision needs: No Female Reproductive History Menstrual Age of Menarche: 11 Date of last menstrual period: 12/13/24 control method: permanent sterilization Total pregnancies: 3 Full term: 3 Physical Exam Vital Signs: Last Vital Signs BP 112/68 12/17/24 15:00 BMI result Body Mass Index 24.7 Other: There is a single 3 cm x 1-1/2 cm oblong darkened swelling papule like on left mons pubis no surrounding redness but it is firm and slightly tender. Consistent with an in capsulated folliculitis. Results Reviewed Results Reviewed: I reviewed all of her STI lab results as well with her. Assessment & Plan Assessment & Plan (1) Folliculitis: Comment: Patient feels it has gotten worse has been putting warm soaks we will treat with Keflex t.i.d. for 5 days and Rx for Monistat also sent in case she gets yeast and teaching done about probiotics and other side effects to expect continue with warm soaks as well if it comes to head and pops cleanse it with half- strength hydrogen peroxide Code(s): L73.9 - Follicular disorder, unspecified Category: Medical Plan Please see the section under folliculitis for the teaching done about care of that I also reviewed the potential for yeast infection and GI side effects including diarrhea and recommend either probiotics or yogurt and reviewed what to expect additionally a prescribing Monistat for use at the 1st sign of any vaginal itching. Additionally, we reviewed all of her lab results which she was reassured by. If it gets worse she should seek her primary care provider's advice. See folliculitis for care of the lesion itself. Medications: New cephalexin 500 mg PO TID 15 caps 0RF miconazole nitrate 2% (Miconazole-7) 1 appful vaginal BEDTIME 7 days 45 grams 2RF Coding Level of Care Code Est Pt Level 3 (54228) Diagnoses Folliculitis L73.9
[2024-12-17 15:00] VITALS: BP 112/68; BMI 24.7
== END 2024-12-17 15:57 | disposition home or self-care (01) ==
LOC: HO.HWSM 14:39
PROVIDERS: PCP Internal Medicine; Visit Provider Advanced Practice Midwife
DX: L73.9 Follicular disorder, unspecified (principal)
CPT/HCPCS: 99213

== ENCOUNTER → 2024-12-17 14:39 | Outpatient (BNVA) | payer OTHER, SELFPAY | PROVIDERS: PCP Internal Medicine; Visit Provider Advanced Practice Midwife | DX: L73.9 Follicular disorder, unspecified (principal) | CPT/HCPCS: 99212 ==

== ENCOUNTER 2025-02-18 09:40 | Emergency (ER) | payer OTHER, SELFPAY ==
[2025-02-18 09:45] VITALS: BP 132/82; PULSE 75; RESP 16; TEMP 36.8; O2SAT 100; BMI 23.9
[2025-02-18 10:16] LABS: Appearance Urine Clear; Color Urine Yellow; Glucose Urine UA Negative (Negative); Leukocyte Esterase Urine Negative (Negative); Nitrite Urine Negative (Negative); PH 6.5 (5.0-9.0); Specific Gravity - Urine <= 1.005 (1.005-1.025); Urine Blood Negative (Negative); Urine Ketones Negative (Negative); Urine Protein Negative (Neg-Trace)
[2025-02-18 10:17] LABS: UPreg QC Valid YES; Urine Pregnancy NEGATIVE (NEGATIVE)
--- NOTE | 2025-02-18 10:56 | ED.FEMALEGU ---
HPI - Female Genitourinary General Chief complaint: Urogenital-Female Stated complaint: Pain When Using the Rest Room, Vaginal Pain Time Seen by Provider: 02/18/25 10:56 Source: patient and technology adoption manager (all interactions with this patient were facilitated with an [facility] physical therapy nurse) Mode of arrival: ambulatory Limitations: language barrier (all interactions with this patient were facilitated with an [facility] physical therapy nurse) History of Present Illness ED Provider: Zainab Wright PA-C HPI Narrative: Patient is a 29 year old assigned female at with a history of YARA, migraines, and folliculitis presenting to the emergency department today with a lump on the left side of her pubic area. Patient states that over the last few days she noticed a left sided pubic lump that has gotten progressively bigger. Patient denies any dizziness, lightheadedness, abdominal pain, nausea, vomiting, fever, chills, blurry vision, double vision, loss of vision, chest pain, difficulty breathing, shortness of breath, back pain, night sweats, pain with urination, increased urinary frequency, increased urinary urgency, blood in her urine or stool, syncope or a near syncopal episode, recent trauma or falls, bowel incontinence, bladder incontinence, or any other complaints at this time. Related Data Home Medications ?Medication ?Instructions ?Recorded ?Confirmed fluoxetine 40 mg capsule 40 mg PO DAILY 02/07/24 12/17/24 lorazepam 1 mg tablet 1 mg PO TID 02/07/24 12/17/24 trazodone 50 mg tablet 50 mg PO BEDTIME 02/07/24 12/17/24 propranolol 10 mg tablet 10 mg PO BID 07/28/24 12/17/24 Previous Rx's ?Medication ?Instructions ?Recorded ondansetron 4 mg disintegrating 4 mg PO Q8H PRN nausea and 07/17/24 tablet vomiting #10 tabs magnesium oxide 400 mg (241.3 mg 400 mg PO BEDTIME 30 days #30 tabs 07/28/24 magnesium) tablet riboflavin (vitamin B2) 400 mg 400 mg PO DAILY 30 days #30 tabs 07/28/24 tablet famotidine 40 mg tablet 40 mg PO BEDTIME #90 tabs 07/29/24 baclofen 5 mg tablet 5 - 10 mg (1 - 2 x 5 mg) PO 12/10/24 BEDTIME PRN muscle spasm 30 days #60 tabs galcanezumab-gnlm 120 mg/mL 240 mg (2 mL) subcut ONCE 30 days 12/10/24 subcutaneous pen injector #2 mL (Emgality Pen) naproxen 500 mg tablet 500 mg PO BID PRN migraine 12/10/24 headache 30 days #30 tabs rizatriptan 10 mg tablet 5 - 10 mg (0.5 - 1 x 10 mg) PO Q2H 12/10/24 PRN migraine headache 30 days #12 tabs cephalexin 500 mg capsule 500 mg PO TID #15 caps 12/17/24 miconazole nitrate 2 % vaginal 1 appful vaginal BEDTIME 7 days 12/17/24 cream (Miconazole-7) #45 grams cephalexin 500 mg capsule 500 mg PO Q6H 7 days #28 caps 02/18/25 Allergies Allergy/AdvReac Type Severity Reaction Status Date / Time No Known Allergies Allergy Unknown unknown Verified 02/18/25 09:52 [NO KNOWN ALLERGIES] Review of Systems Constitutional: Constitutional: Reports no additional constitutional complaints, Denies chills, Denies fever(s) and Denies night sweats Eyes: Eyes: Reports no additional eye complaints, Denies blurry vision, Denies change in vision, Denies diplopia, Denies eye discharge, Denies loss of vision and Denies eye pain ENT: Denies dizziness Cardiovascular: Cardiovascular: Reports no additional cardiovascular complaints, Denies chest pain, Denies lightheadedness, Denies Loss of Consciousness and Denies dyspnea Respiratory: Respiratory: Reports no additional respiratory complaints and Denies dyspnea Gastrointestinal: Gastrointestinal: Reports no additional gastrointestinal complaints, Denies abdominal pain, Denies melena, Denies hematochezia, Denies change in bowel habits and Denies change in stool character Genitourinary: Genitourinary: Denies hematuria, Denies urinary frequency, Denies dysuria, Denies urinary incontinence, Denies urinary hesitancy and Denies urinary urgency Musculoskeletal: Musculoskeletal: Reports no additional musculoskeletal complaints, Denies numbness and Denies tingling Integumentary/Breasts: Comments: lump to left side of pubic area Neurologic: Denies dizziness, Denies loss of vision, Denies numbness and Denies tingling Psychiatric: Psychiatric: Reports no additional psychiatric complaints Endocrine: Endocrine: Reports no additional endocrine complaints Hematologic/Lymphatic: Hematologic/Lymphatic: Reports no additional hematologic/lymphatic complaints Allergic/Immunologic: Allergic/Immunologic: Reports no additional allergic/immunologic complaints PMFSH Past Medical History Attestation statement: The following information was validated with the patient. Source: old records reviewed and nursing notes reviewed Medical History Anxiety and depression No pertinent past medical history Surgical History History of tubal ligation Family History Family History Mother Hypertension Father No problems noted. Social History Social History Housing: Apartment Alcohol intake: never Patient Tobacco Use Status: Never used Tobacco Smoked in Last 30 Days: No e-Cigarette/Vaping Use: Never Used Second Hand Smoke Exposure: No Use of substances other than those prescribed or required for medical reasons: No Advance Directives: No Advance Directives Information Provided: Yes Patient : No service: No Current occupational status: unemployed Cognitive needs: No Hearing needs: No Vision needs: No Physical Exam Vital Signs: Vital Signs: Last Vital Signs Temp 98.0 F 02/18/25 12:20 Pulse 75 02/18/25 12:20 Resp 16 02/18/25 12:20 BP 132/82 02/18/25 12:20 Pulse Ox 100 02/18/25 12:20 O2 Del Method Room Air 02/18/25 12:20 BMI result Body Mass Index 23.9 Const: General: cooperative, no acute distress, alert and awake Nutritional Appearance: well nourished Orientation/consciousness: patient oriented x3 Limitations: no limitations HEENT: Head: Yes normal to inspection and Yes atraumatic Ears: hearing grossly normal bilaterally and external ears normal General nose exam: Normal external nose present, no nasal discharge noted and no epistaxis Face and sinus: Yes normal facial exam, No abrasion and No laceration Mouth: Normal oral and palatal mucosa present, no drooling and no muffled voice Eyes: General: appearance normal, both eyes and all related structures Periorbital: periorbital findings normal Eyelids: Yes eyelids normal Conjunctivae: conjunctivae normal Pupils: Equal, round and reactive pupils present EOM: EOMs intact bilaterally Neck: Neck: Yes normal visual inspection, Yes full ROM and Yes no lymphadenopathy Chest: Chest palpation & inspection: normal inspection of the chest Resp: Effort & Inspection: normal respiratory effort and able to speak in complete sentences GI: Inspection: Yes normal to inspection Skin: Full body images: 1. 1cm abscess - fluctuant + erythematous, tender to palpation. Neuro: General: patient oriented x3, moves all extremities and CN's II-XI intact bilaterally Cranial nerves: Yes Equal, round and reactive pupils present Cognition (Neuro): normal cognition Extrem: General: Yes normal to inspection, Yes full ROM and Yes capillary refill normal Psych: Appearance: grossly normal Mental Status: mental status grossly normal Affect: normal affect Attitude: cooperative Thought process: Normal thought process present Thought content: Normal thought content present Insight: Good insight present (Psych) Medical Decision Making Medical Decision Making [facility] Narrative: Patient is a 29 year old assigned female at with a history of YARA, migraines, and folliculitis presenting to the emergency department today with a lump on the left side of her pubic area. Patient's physical exam showed a small abscess to the left pubic area. Patient's urine showed no acute process. I explained my physical exam findings as well as all test results to the patient. I answered all questions asked by the patient. Patient's abscess was incised and drained, per procedure note, without incident. Purulent discharge was present and expressed easily. I stressed the importance of the patient taking her medication as directed (either prescribed or as the over the counter packaging recommends). I stressed the importance of the patient following up with her primary care provider and a general surgeon. I stressed the importance of the patient returning to the emergency department immediately if her symptoms were to worsen or if she were to develop any dizziness, shortness of breath, difficulty breathing, chest pain, blurry vision, loss of vision, nausea, vomiting, abdominal pain, fever, chills, back pain, or any other complaints. Patient verbalized agreement and understanding with this treatment plan and discharge. Differential Diagnosis Differential Diagnoses: The differential diagnosis associated with the presentation includes Abscess Admission/Observation Consideration of admission/observation: Escalation of care including admission/observation considered Patient would have been admitted to the hospital had her work up had any findings where hospital admission was appropriate and her clinical presentation warranted hospital admission. Lab Data [facility] Lab Attestation statement: I reviewed the patient's lab results. My interpretation of these studies and their corresponding values is that they are grossly normal. Labs: Lab Results 02/18/25 Range/Units 10:09 Urine Color Yellow Urine Appearance Clear Urine pH 6.5 (5.0-9.0) Ur Specific [place] <= 1.005 (1.005-1.025) Urine Protein Negative (Neg-Trace) mg/dL Urine Glucose (UA) Negative (Negative) mg/dL Urine Ketones Negative (Negative) mg/dL Urine Blood Negative (Negative) Urine Nitrite Negative (Negative) Ur Leukocyte Esterase Negative (Negative) Urine Test NEGATIVE (NEGATIVE) Prescription Management I considered prescription management with: Antibiotic (patient prescribed an antibiotic for abscess.) Procedures Abscess I/D Site: hand (pubic area) Side (if applicable): left Technique: incised with blade Amount of fluid expressed (mL): 5 Sent for culture/gram staining?: No Irrigation: No Packing used?: none Discharge Plan Discharge Clinical Impression: Abscess Patient Disposition: Home, Self-Care Instructions: Abscess Incision and Drainage (DC) Additional Instructions: Follow up with a general surgeon. Take your antibiotic as prescribed. Allow the area to continue to drain. Seguimiento con un cirujano general. Garrison el antibi?robin seg?n lo prescrito. Deje que la yassine siga drenando. Follow up with your primary care provider. Return to the emergency department immediately if your symptoms worsen or if you develop any dizziness, shortness of breath, difficulty breathing, chest pain, blurry vision, loss of vision, nausea, vomiting, abdominal pain, fever, chills, back pain, or any other complaints. Martin?seguimiento?con reyna m?dico de atenci?n primaria. Acuda inmediatamente al servicio de urgencias si jakob s?ntomas empeoran o si presenta falta de aliento, dificultad para respirar, dolor tor?cico, mareos, aturdimiento, dolor de espalda, dolor abdominal, fiebre, escalofr?os o cualquier otro s?ntoma. Please see the information below about our Patient Portal. If you are not yet enrolled in the [facility] Patient Portal, you will receive an enrollment email invitation following your visit to any [facility] care setting. You may also self-enroll in the Patient Portal by visiting our website: [email or web address] The following information is required to access the Patient Portal: - Your [facility] Medical Record Number - Your personal home email address (must match what is in your electronic medical record, Registration staff can assist with this) - Name - Date of Capabilities of the Patient Portal: - Message some providers - View upcoming appointments - Access your health summary, medical history, and visit history - View current conditions and allergies - View procedure and lab results - View your medications, including guidelines, side effects, and precautions - Complete pre-appointment questionnaires requested by your provider - Ready summary reports of your office visits and procedures To access the Patient Portal Mobile Yoav, follow these directions: - Search [employer] in the Yoav Store or VIS[employer] Store - Download the Yoav - Search for [facility] - Enter your login/password Portal del paciente Si usted no esta inscrito en el portal de pacientes de [facility], recibira gina invitacion de inscripcion despues de reyna visita al [facility] o al [facility] via correo electronico. Tambien puede inscribirse voluntariamente en el portal de pacientes visitando nuestra pagina web: [email or web address] La siguiente informacion sera requerida para acceder al portal: - Reyna nabila de historia medica de [facility] - Reyna direccion de correo electronico personal - Nombre - Fecha de nacimiento Capacidades: Las siguientes capacidades estan disponibles en el portal de pacientes: - Enviar mensajes a algunos doctores - Verificar proximas citas - Acceso a reyna historial de vicente, registro medico e historial de visitas - Fadi las condiciones actuales y alergias fadi procedimientos y resultados del laboratorio - Fadi jakob medicamentos, incluyendo las pautas - Efectos secundarios y precauciones - Completar o llenar formularios / cuestionarios de - Citas solicitadas por reyna doctor - Leer los resumenes de reportes medicos de jakob visitas y procedimientos Fran acceder a la aplicacion movil: - [facility] en la Yoav Store o [employer] Store - Descargue la aplicacion - [facility] - Ingrese reyna nombre de usuario / Contrasena Prescriptions: New cephalexin 500 mg capsule 500 mg PO Q6H 7 Days Qty: 28 0RF No Action ondansetron 4 mg tablet,disintegrating 4 mg PO Q8H PRN (Reason: nausea and vomiting) Qty: 10 0RF fluoxetine 40 mg capsule 40 mg PO DAILY trazodone 50 mg tablet 50 mg PO BEDTIME lorazepam 1 mg tablet 1 mg PO TID propranolol 10 mg tablet 10 mg PO BID riboflavin (vitamin B2) 400 mg tablet 400 mg PO DAILY 30 Days Qty: 30 6RF magnesium oxide 400 mg (241.3 mg magnesium) tablet 400 mg PO BEDTIME 30 Days Qty: 30 6RF Rx Instructions: may hold for loose stools famotidine 40 mg tablet 40 mg PO BEDTIME Qty: 90 0RF Emgality Pen 120 mg/mL pen injector 240 mg subcut ONCE 30 Days Qty: 2 0RF Rx Instructions: Loading dose: 120 mg subcu injection x2 in alternate sites (total 240 mg). To be followed by maintenance dose of 120 mg subcu q.month. naproxen 500 mg tablet 500 mg PO BID PRN (Reason: migraine headache) 30 Days Qty: 30 6RF rizatriptan 10 mg tablet 5 - 10 mg PO Q2H PRN (Reason: migraine headache) 30 Days Qty: 12 3RF Rx Instructions: max 2 tabs per day or 4 tabs per week baclofen 5 mg tablet 5 - 10 mg PO BEDTIME PRN (Reason: muscle spasm) 30 Days Qty: 60 3RF cephalexin 500 mg capsule 500 mg PO TID Qty: 15 0RF miconazole nitrate [Miconazole-7] 2 % cream 1 appful vaginal BEDTIME 7 Days Qty: 45 2RF Referrals: [facility] General Surgeons [Provider Group] Brielle Mitchell MD [Primary Care Provider] - Stand Alone Forms: Work/School Release Interventions: ED Discharge Assessment Last Done: 02/18/25 12:20 Discharge Date/Time: 02/18/25 12:21 Print Language: Georgian
--- NOTE | 2025-02-18 11:11 | PC.NURSE ---
Report received, taken over care at this time.
[2025-02-18 12:00] VITALS: BP 132/82; PULSE 75; RESP 16; TEMP 36.7; O2SAT 100
[2025-02-18 12:20] VITALS: BP 132/82; PULSE 75; RESP 16; TEMP 36.7; O2SAT 100
== END 2025-02-18 12:21 | disposition home or self-care (01) ==
PROVIDERS: Emergency Provider Emergency Medicine; PCP Internal Medicine
DX: N73.9 Female pelvic inflammatory disease, unspecified (principal); R10.2 Pelvic and perineal pain
CPT/HCPCS: 10060; 81003; 81025; 99283; 99284

== ENCOUNTER 2025-06-10 14:44 | Outpatient (AMB) | payer OTHER, SELFPAY ==
--- NOTE | 2025-06-10 14:46 | A.OFFVIS_ITS ---
Vital Signs 06/10/25 14:47 Height 5 ft 4 in Weight 142 lb 8 oz BMI 24.5 BP 112/70 Blood Pressure Location Lt brachial Position Sitting Pulse 102 H Pulse Source Pulse Oximeter Pulse Oximetry (%) 99 Oxygen Delivery Method Room Air Intake Visit Reasons: 6 months follow up Intake Note: Patient presents follow up Migraine Medication. Wired Music Operator Required: Yes Wired Music Operator Language: Chemical Laboratory Technician Name: [id number] Information Interpreted: non-clinical only Allergies No Known Allergies (NO KNOWN ALLERGIES) Allergy (Unknown, Verified 06/10/25 14:49) unknown HPI Comments Details: Right-handed 29-yr-old female presents for follow-up of migraine. Patient reports her migraine burden as about the same. She continues to wake up with an almost daily migraine. However, patient states that after she started the loading dose Emgality injection in March, she had greater than 30% reduction in monthly migraine days. However after the loading dose, she was not able to refill the Emgality maintenance dose. And since, her migraine frequency has increased again to daily. She states she tolerated the Emgality well, did not notice any side effects. She states the rizatriptan is well tolerated, in his more effective than the sumatriptan, though not fully at this time. She does take an ibuprofen after taking the rizatriptan that is not effective, but she has not tried taking these together. She continues to have noticeable tinnitus. She does continue to have bothersome neck pain which isolates to the neck and bilateral upper trap, and she would like to do the PT at this time. She denies any focal weakness. She also notes, that she can have some right eye blurry vision, dry eye, eyelid twitching. She states this can be with and without the headache. She has not had an eye exam in a long time. She is not using any glasses for reading or distance vision. 12/10/2024, HPI: Patient reports her migraine burden as about the same. She continues to wake up with an almost daily migraine. She does continue to have neck tightness, more so in the left. She did not tolerate sumatriptan, cyclobenzaprine, or amitriptyline. XR C-spine has not yet been completed. 09/01/2024 brain MRI with and without contrast was unremarkable. 09/04/2024 home sleep study did not show evidence of sleep apnea, AHI 0.4 per hour and O2 jocelin 80% with average SpO2 97%. 07/28/2024, initial HPI: Pt reports she has had headache for some time (not sure how long), but these worsened in severity and frequency a year ago. PMH and ROS are notable for:? General: at times dizziness. Musculoskeletal disorders or injury: Low back pain x's 3 weeks. Sometimes her hands fall asleep. 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 Family planning: none Pertinent denials include: History of concussion/head injury, Mood d/o, Respiratory d/o, CV disease, Clotting or hematology d/o, Endocrine d/o, metabolic d/o, History of seizure, syncope, or drop attacks, GI d/o, Constipation, Leg Cramps, Family history of migraine or other headache disorder Lifestyle considerations: Sleep routine: Usual bedtime: 11pm and wake-up time: 6pm Sleep difficulties: At times daytime tiredness. Caffeine use: 3-4 cups of coke per day Substance use: Denies Exercise:? at times, goes to the gym Employment:? not working- Family planning: h/o tubal ligation. Denies h/o epidural. Headache questionnaire:? Preceding causes: none Previous work-up: none Typical headache characteristics: Prodrome symptoms: Denies Aura: Denies Pain intensity: moderate-severe Location, quality, characteristics: Begins as pulsating and pounding pain in bilateral temples, and left face/eyelid, and moves into the whole head, especially the left neck. Associated symptoms: sees white starts when more severe, allodynia, nausea, not right in space dizziness, fatigue, cognitive difficulties, activity intolerance, high-pitched bilateral tinnitus. Postdrome: lingers Triggers: hunger Time of day: Wakes up with the headache Duration and Frequency: Constant mild-moderate headache, which is more severe for hours 4-5 days per week. How does headache impact your life? at times, cannot do her daily activities. Current acute medication use/interventions: Advil 400mg TID- using for severe headaches- does not help much. Current preventative medication use: On propranolol 10mg for anxiety x's > 1 yr. Non-pharmacological interventions: rest [facility] Medical History Anxiety and depression No pertinent past medical history Surgical History History of tubal ligation Family History Mother Hypertension Father No problems noted. Social History Housing: Apartment Alcohol intake: never Patient Tobacco Use Status: Never used Tobacco e-Cigarette/Vaping Use: Never Used Second Hand Smoke Exposure: No service: No Current occupational status: unemployed Cognitive needs: No Hearing needs: No Vision needs: No Female Reproductive History Menstrual Age of Menarche: 11 Physical Exam Vital Signs: Last Vital Signs Pulse 102 H 06/10/25 14:47 BP 112/70 06/10/25 14:47 Pulse Ox 99 06/10/25 14:47 Oxygen Delivery Method Room Air 06/10/25 14:47 BMI result Body Mass Index 24.5 Const General: cooperative and no acute distress Orientation/consciousness: patient oriented x3 Resp Effort & Inspection: normal respiratory effort and able to speak in complete sentences Neuro General: patient oriented x3 Cranial nerves: Yes CN's II-XII intact bilaterally Cognition (Neuro): normal cognition Psych Appearance: grossly normal Mental Status: mental status grossly normal Speech and movement: Normal speech and movement present Affect: normal affect Attitude: cooperative Assessment & Plan Assessment & Plan (1) Migraines: Code(s): G43.909 - Migraine, unspecified, not intractable, without status migrainosus Category: Medical Qualifiers: Intractability: not intractable Migraine type: chronic migraine (15 or more days per month) without aura Status migrainosus presence: without status migrainosus Qualified Code(s): G43.709 - Chronic migraine without aura, not intractable, without status migrainosus (2) Migraine with aura: Comment: Has episodic visual aura during severe migraine attack- sees white stars Code(s): G43.109 - Migraine with aura, not intractable, without status migrainosus Category: Medical Qualifiers: Status migrainosus presence: without status migrainosus Intractability: not intractable Qualified Code(s): G43.109 - Migraine with aura, not intractable, without status migrainosus (3) Cervicalgia: Code(s): M54.2 - Cervicalgia Category: Medical (4) Sleep difficulties: Code(s): G47.9 - Sleep disorder, unspecified Category: Medical (5) Dry eyes: Code(s): H04.123 - Dry eye syndrome of bilateral lacrimal glands Category: Medical (6) Eyelid twitch: Code(s): R25.3 - Fasciculation Category: Medical (7) Vision changes: Code(s): H53.9 - Unspecified visual disturbance Category: Medical Plan Previous Brain MRI w/wo- unremarkable Previous HST- no evidence for sleep apnea For overall headache management: * Optimize good self-care, including but not limited to maintaining a healthy diet, adequate fluid intake, adequate sleep, and engaging in regular physical activity. * Track headaches, especially after any treatment regimen changes. Migraine Zeer is one of many headache tracking apps. * [email or web address] For vision changes/symptoms: We will request ophthalmology evaluation. For cervicalgia: XR- c-spine w/flex/ext when able PT eval & tx new order initiated. Baclofen 5 mg tab-1-2 tabs daily at bedtime as needed Previous trials: Cyclobenzaprine 5mg qhs- ineffective. For acute headache treatment: Discussed importance of taking acute medications at the first sign of headache, however stressed importance of avoiding acute medication overuse (especially with combined headache medications). Continue Rizatriptan 10mg tab, 1/2 - 1 tab (5-10mg) at onset of headache, may repeat in 2 hours. Max of 2 tabs (200mg) per 24 hours. May adjunct with OTC Tylenol 650mg every 4 hours, Ibuprofen (liquigel) 600mg every 6 hours, or Naproxen (liquigel) 500 mg every 12 hrs as needed. Naproxen 500 mg every 12 hours as needed. Previous acute migraine medication trials: Sumatriptan 25mg- ineffective w/o adverse effects. Sumatriptan 100 mg- not tolerated. Acute migraine medication contraindications: None at this time For headache prevention medication: Preventative medications should be taken routinely as prescribed for best effect, it may take several weeks for full effect to take effect. Continue Riboflavin 400mg qam Continue Magnesium 400mg qhs Continue Propranolol 10mg bid- used for anxiety. Would not increase further d/t HR already prone to run in 60s. Resume Emgality 120mg/ml auto-injection: Loading dose: 240mg (2 120mg/ml auto-injections) via subcutaneous injection in 2 different sites). Then 30 days after loading dose, start Maintenance dose: 120mg (120mg/ml autoinjector) subcutaneous injection every month. * Store Emgality in the refrigerator in it's original packaging in order to protect from light. * Remove Emgality at least 1 hour prior to taking the injection. * Emgality can be left out of the fridge for?up to 7 days at a temperature not above 86?F. If either of these conditions are exceeded, then Emgality must be thrown away. * Once Emgality has been stored out of refrigeration, do not place it back in the refrigerator. Previous migraine prevention medication trials: Amitriptyline 10 mg- not tolerated. Migraine prevention medication contraindications: None at this time Will follow-up upon review of above and patient to follow-up in clinic in 6 months or sooner prn. Sample given directly to patient, to retry Emgality at loading dose. Medication given: Emgality 120mg/ml auto-injection Quantity given: 1 box containing Emgality 240mg (2 120mg/ml auto-injections). Instructions: Loading dose: Inject Emgality 240mg (2 120mg/ml auto-injections) via subcutaneous injection in 2 different sites). Lot #: [id number] Exp date: 05/13/2026 Orders: Orders PT Evaluation and Treatment Today G43.109 - Migraine with aura, not intractable, without status migrainosus, M54.2 - Cervicalgia Referrals Ophthalmology Referral G43.109 - Migraine with aura, not intractable, without status migrainosus, H04.123 - Dry eye syndrome of bilateral lacrimal glands, H53.9 - Unspecified visual disturbance, M54.2 - Cervicalgia, R25.3 - Fasciculation Medications: New galcanezumab-gnlm (Emgality Pen) Maintenance dose of 120 mg subcu q.month. 120 mg subcut Q30D 1 mL 6RF 30 days Changed From magnesium oxide may hold for loose stools 400 mg PO BEDTIME 30 days 30 tabs 6RF To magnesium oxide may hold for loose stools 400 mg PO BEDTIME 90 tabs 3RF 90 days From propranolol 10 mg PO BID To propranolol 10 mg PO BID 180 tabs 1RF 90 days From riboflavin (vitamin B2) 400 mg PO DAILY 30 days 30 tabs 6RF To riboflavin (vitamin B2) 400 mg PO DAILY 90 tabs 3RF 90 days Refilled 2 rizatriptan max 2 tabs per day or 4 tabs per week 5 - 10 mg (0.5 - 1 x 10 mg) PO Q2H PRN 12 tabs 3RF migraine headache 30 days naproxen 500 mg PO BID PRN 30 tabs 6RF migraine headache 30 days Coding Level of Care Code Est Pt Level 4 (84757) Diagnoses Chronic migraine without aura without status migrainosus, not intractable G43.709 Intractability: not intractable Migraine type: chronic migraine (15 or more days per month) without aura Status migrainosus presence: without status migrainosus Migraine with aura and without status migrainosus, not intractable G43.109 Status migrainosus presence: without status migrainosus Intractability: not intractable Cervicalgia M54.2 Sleep difficulties G47.9 Dry eyes H04.123 Eyelid twitch R25.3 Vision changes H53.9
[2025-06-10 14:47] VITALS: BP 112/70; PULSE 102; O2SAT 99; BMI 24.5
== END 2025-06-10 15:17 | disposition home or self-care (01) ==
LOC: HO.HSMS 14:45
PROVIDERS: PCP Internal Medicine; Visit Provider Nurse Practitioner Family
DX: G43.709 Chronic migraine without aura, not intractable, without status migrainosus (principal); G43.109 Migraine with aura, not intractable, without status migrainosus; M54.2 Cervicalgia; G47.9 Sleep disorder, unspecified; H04.123 Dry eye syndrome of bilateral lacrimal glands; R25.3 Fasciculation; H53.9 Unspecified visual disturbance
CPT/HCPCS: 99214

== ENCOUNTER → 2025-06-10 14:44 | Outpatient (BNVA) | payer OTHER, SELFPAY | PROVIDERS: PCP Internal Medicine; Visit Provider Nurse Practitioner Family | DX: M54.2 Cervicalgia (principal); G43.E09 Chronic migraine with aura, not intractable, without status migrainosus; G47.9 Sleep disorder, unspecified; H04.123 Dry eye syndrome of bilateral lacrimal glands; R25.3 Fasciculation; H53.9 Unspecified visual disturbance | CPT/HCPCS: 99212 ==